=== PATIENT | male | born 1970 | race Caucasian/White ===

== ENCOUNTER 2022-06-21 14:00 | Outpatient (CLI) | payer BC, SELFPAY ==
--- OUTSIDE RECORDS SUMMARY | 2022-06-21 14:03 | XMS_ITS | Encounter Summary ---
:1970 Author Organization [facility] [place] [address] Care Team Providers Name Role Phone Darin Lozano MD Primary Care Provider Reason for Visit Reason Onset Date Comments Pre Procedure Call 05/04/2021 Encounter Details Date Type Department Care Team Description 05/04/2021 Telephone Hematology and Oncology at [facility], Pre Procedure Call [facility] [place] [address] Social History Tobacco Use Types Packs/Day Years Used Date Never Smoker Smokeless Tobacco: Never Used Alcohol Use Standard Drinks/Week Comments Yes 2 (1 standard drink = 0.6 oz pure alcoho l) Financial Resource Strain Answer Date Recorded How hard is it for you to pay for the very basics like Not h eduard at all 06/21/2022 food, housing, medical care, and heating? Food Insecurity Answer Date Recorded Within the past 12 months, you worried that your food would Never true 06/21/2022 run out before you got money to buy more. Within the past 12 months, the food you bought just didn't N ever true 06/21/2022 last and you didn't have money to get more. Transportation Needs Answer Date Recorded In the past 12 months, has lack of transportation kept you f rom No 06/21/2022 medical appointments or from getting medications? In the past 12 months, has lack of transportation kept you f rom No 06/21/2022 meetings, work, or getting things needed for daily living? Housing Stability Answer Date Recorded In the last 12 months, was there a time when you were not ab le No 06/21/2022 to pay the mortgage or rent on time? In the last 12 months, how many places have you lived? 1 06/21/2022 In the last 12 months, was there a time when you did not hav e a No 06/21/[address] or slept in a senior care (including now)? Sex Assigned at Date Recorded Not on file documented as of this encounter Miscellaneous Notes Telephone Encounter - Mayi Lemons RN - 05/09/2021 3:37 PM EDT Reason for call: PSA clinic appointment on _06/11/21 at 0800___. Scheduled for Bx at this time? Yes UroNav Meds/Allergies: NKA Anticoagulant medications: (Coumadin, Plavix, ASA, NSAIDS) No If yes instruct pt to contact PCP or prescribing physician for further instruction as to discontinuing and restarting anti-coagulant therapy for Biopsy. If unable to discontinue medication as per PCP pt to keep appointment and if biopsy warranted will be scheduled for a later date with bridging. Review OTC, herbal and vitamin supplements for potential anti-coag effect: (ginko biloba, lisa, fever few, garlic, herbal teas with supplements added, Vit C,) No If yes and pt started: pt to stop supplements for 1 week prior and 1 week after biopsy. Labs: Free PSA (must be at least 10 days prior to clinic) Most recent PSA result and date 03/06/21, 10.6 Have all labs faxed to Urology office (fax # [phone]). Patient Hx: Leaky heart valve, artifical heart valve, hx of heart attack and/or problems No Artifical Joint Replacement No Family history of prostate cancer: No Anyone in household work in healthcare? No Antibiotic use in the past 6 months? No Travel outside the [place] in the past 6 months No Other MRI done 06/04/21. Instructed to hold NSAIDs for 7 days prior to appointment. Will use Fleet enema morning of appointment. Patient Instructions/Information: Patient should eat breakfast. Patient to purchase Fleet Enema and use according to directions the morning of appointment if having a biopsy. Patient will meet with provider to discuss lab results and have a SHIVANI. Registration is at Hem[facility]Onc health sciences department chair 3K. Patient understands and is able to verbalize back to this nurse the above information. Patient agrees to the POC, knows when and how to call if need arises. Telephone Encounter - Mayi [facility]ons RN - 05/09/2021 12:08 PM EDT Left message to see if patient would like to change biopsy date from 07/09 to 06/11 at 0800. Telephone Encounter - Mayi Lemons RN - 05/04/2021 10:41 AM EDT Left message to schedule MRI and prostate biopsy with Dr. Sabillon. documented in this encounter Plan of Treatment Not on filedocumented as of this encounter Results US Guided Biopsy Prostate with Uronav Fusion (06/11/2021 9:59 AM EDT) Anatomical Region Laterality Modality Pelvis Ultrasound Specimen (Source) Anatomical Collection Method Collection Time Re ceived Time Location / / Volume Laterality 06/11/2021 9:27 AM EDT Impressions 06/11/2021 1:58 PM EDT Prostate Summary Transrectal ultrasound of the prostate was performed. No hypoechoic areas seen. Calcification s Prostate Biopsy Summary Ultrasound guidance was provided for Dr Matt Sabillon of the section of Urology who performed multiple biopsies in the [address] [place] [address] location. UroNav fusion was used for this procedu re. Thank you for letting us participate in the care of this patient. If you are a [facility] care [facility] er and have any questions regarding this report, please contact the number above. For patients who have ques tions, please contact the [facility] professio nal that requested your imaging first. ? Josh [place], Staff Terrence romero Electronically Signed Final Report ?? 01:58 pm Narrative 06/11/2021 1:58 PM EDT Male Pelvis ? (Signed Final 06/11/2021 01:58 pm) PATIENT INFO: ID #: ? [id number] ?: ??[birth year] (50 yrs)(M) Name: ? TI Griffin MICHAEL ? Visit Date: 06/11/2021 09:27 am PERFORMED BY: Performed By: ? Manjeet Ambrose RDMS Attending: ?Gio BRISCOE, Vladimir de los santos Referred By: ?JUANA SABILLON Location: ? [place] SERVICE(S) PROVIDED: UTRBXURO - Prostate Biopsy with UroNav Fusion ? [id number], [id number] - [id number] INDICATIONS: Prostate cancer, active surveillance, P SA 10.6 TECHNIQUE/SCAN QUALITY: Technique: ?Transducer #:[id number] COMPARISON: MRI Pelvis:06/04/21 Ultrasound: Prostate 03/29/19 --------- PROSTATE: --------- Size (cm) ?L: ??4.7 ? AP: ?? 2.5 ? TV: ??4.7 Vol (ml): ?28.9 Comment: ?No hypoechoic areas seen. Calcifications ADDITIONAL FINDINGS: Template biopsies performed: 6 biopsies obtained from the right. 6 biopsies obtained from the left 2 biopsies obtained from midline. Several additional biopsies obtained th rough suspicious area(s) using UroNav fusion. Procedure Note Josh [place] MD - 06/11/2021Format ting of this note might be different from the original. Male Pelvis (Signed Final 06/11/2021 01 :58 pm) PATIENT INFO: ID #: [id number] : [birth year] (50 y rs)(Rohan) Name: TI RODRIGUEZ Visit Date: 06/11/2021 09:27 am PERFORMED BY: Performed By: Manjeet Ambrose RDMS Attending: Josh [place] MD Referred By: JUANA SABILLON Location: [place] SERVICE(S) PROVIDED: UTRBXURO - Prostate Biopsy with UroNav Fusion [id number], [id number] - [id number] INDICATIONS: Prostate cancer, active surveillance, P SA 10.6 TECHNIQUE/SCAN QUALITY: Technique: Transducer #:[id number] COMPARISON: MRI Pelvis:06/04/21 Ultrasound: Prostate 03/29/19 --------- PROSTATE: --------- Size (cm) L: 4.7 AP: 2.5 TV: 4.7 Vol (ml): 28.9 Comment: No hypoechoic areas seen. Calc ifications ADDITIONAL FINDINGS: Template biopsies performed: 6 biopsies obtained from the right. 6 biopsies obtained from the left 2 biopsies obtained from midline. Several additional biopsies obtained th rough suspicious area(s) using UroNav fusion. IMPRESSION Prostate Summary Transrectal ultrasound of the prostate was performed. No hypoechoic areas seen. Calcification s Prostate Biopsy Summary Ultrasound guidance was provided for Dr Matt Sabillon of the section of Urology who performed multiple biopsies in the [address] [place] [address] location. UroNav fusion was used for this procedu re. Thank you for letting us participate in the care of this patient. If you are a [facility] er and have any questions regarding this report, please contact the number above. For patients who have ques tions, please contact the [facility] professio nal that requested your imaging first. Josh [place]r, Staff Physician Electronically Signed Final Report 06/11 01:58 pm Juana Sabillon MD [facility] PROC ORDERABLES documented in this encounter Visit Diagnoses Diagnosis Malignant neoplasm of prostate Malignant neoplasm of prostate documented in this encounter Care Teams Air Brake Rigger Relationship Specialty Start Date End Date Darin Lozano MD PCP - General Family Medicine 03/29/[address] [place] [phone] documented as of this encounter
--- OUTSIDE RECORDS SUMMARY | 2022-06-21 14:03 | XMS_ITS | Encounter Summary ---
:1970 Author Organization [facility] [place] [address] Care Team Providers Name Role Phone Darin Lozano MD Primary Care Provider Encounter Details Date Type Department Care Team Description 10/13/2020 Orders Only [facility] Cov id, Eligible [facility] none [facility] [place] [address] Social History Tobacco Use Types Packs/Day Years Used Date Never Smoker Smokeless Tobacco: Never Used Financial Resource Strain Answer Date Recorded How [...] place to sleep or slept in a custodial (including now)? Sex Assigned at Date Recorded Not on file documented as of this encounter Plan of Treatment Not on filedocumented as of this encounter Visit Diagnoses Not on filedocumented in this encounter Care Teams Sane Nurse Relationship Specialty Start Date End Date Darin Lozano MD PCP - General Family Medicine 03/29/[address] [place] [phone] documented as of this encounter
--- OUTSIDE RECORDS SUMMARY | 2022-06-21 14:03 | XMS_ITS | Encounter Summary ---
:1970 Author Organization [facility] [place] [address] Care Team Providers Name Role Phone Darin Lozano MD Primary Care Provider Encounter Details Date Type Department Care Team Description 04/19/2019 External Results Medical Records Provider, Scanning [facility] [place] [address] Social History Tobacco Use Types Packs/Day Years Used Date Never Assessed Financial Resource Strain Answer Date Recorded How [...] place to sleep or slept in a alf (including now)? Sex Assigned at Date Recorded Not on file documented as of this encounter Plan of Treatment Not on filedocumented as of this encounter Procedures Procedure Name Priority Date/Time Associated Diagnosis Comme nts SURGICAL PATHOLOGY Routine 04/19/2019 Results f or this SCAN procedure are i n the results section . documented in this encounter Results Scan Doc: Surgical Pathology (04/19/2019) Narrative This result has an attachment that is no t available. Historical Provider MD MEDIA MGR SCAN EXT ORDR/RSLT documented in this encounter Visit Diagnoses Not on filedocumented in this encounter Care Teams Umbrella Supervisor Relationship Specialty Start Date End Date Darin Lozano MD PCP - General Family Medicine 03/29/[address] [place] [phone] documented as of this encounter
--- OUTSIDE RECORDS SUMMARY | 2022-06-21 14:03 | XMS_ITS | Encounter Summary ---
:1970 Author Organization [facility] [place] [address] Care Team Providers Name Role Phone Winston Li MD Primary Care Provider Encounter Details Date Type Department Care Team Description 02/22/2019 Orders Only Urology at [facility] Ralf Sabillon MD [facility] [place] [address] UROLOGY [phone] [place] [id number] (Wo rk) Social History Tobacco Use Types Packs/Day Years [...] place to sleep or slept in a assisted (including now)? Sex Assigned at Date Recorded Not on file documented as of this encounter Plan of Treatment Not on filedocumented as of this encounter Visit Diagnoses Not on filedocumented in this encounter Care Teams Can Washer Relationship Specialty Start Date End Date Winston Li MD PCP - General 08/14/10 03/28/19 documented as of this encounter
--- OUTSIDE RECORDS SUMMARY | 2022-06-21 14:03 | XMS_ITS | Encounter Summary ---
:1970 Author Organization [facility] [place] [address] Care Team Providers Name Role Phone Darin Lozano MD Primary Care Provider Reason for Visit Consultation (Routine) - Closed Specialty Diagnoses / Procedures Referred By Contact Refer red To Contact Radiation Oncology Diagnoses Malignant neoplasm of prostate PROSTATE CANCER Sophie Roca MD [facility] Rad Onc Office Procedures TREATMENT OPTIONS [address] [place] [address] [place] [address] Phone: Fax: Referral ID Status Reason Start Date Expiration Date Visits Requ ested Visits Authorized [id number] Closed 03/09/2021 03/09/2022 1 1 Encounter Details Date Type Department Care Team Description 04/20/2021 Office Visit Radiation Oncology at Enzo Bennett M alignant neoplasm of [facility] MD prostate [address] [place] [address] RADIATION ONCOL OGY [address] [place], [place] [phone] (Wo rk) Social History Tobacco Use Types [...] place to sleep or slept in a chcf (including now)? Sex Assigned at Date Recorded Not on file documented as of this encounter Last Filed Vital Signs Vital Sign Reading Time Taken Comments Blood Pressure 135/89 04/20/2021 10:00 AM EDT Pulse 77 04/20/2021 10:00 AM EDT Temperature 37 ??C (98.6 ??F) 04/20/2021 10:00 AM EDT Respiratory Rate 16 04/20/2021 10:00 AM EDT Oxygen Saturation 100% 04/20/2021 10:00 AM EDT Inhaled Oxygen Concentration - - Weight 95.2 kg (209 lb 12.8 oz) 04/20/2021 10:00 AM EDT Height - - Body Mass Index 28.83 03/29/2019 10:05 AM EDT documented in this encounter Progress Notes Jessica Timmons RN - 04/20/2021 11:00 AM EDT RADIATION ONCOLOGY NURSING INITIAL NURSING ASSESSMENT IDENTIFICATION: Ti Mario is a 50 y.o. year-old male with prostate ca REVIEW OF SYSTEMS: Review of Systems - Oncology REVIEW OF SYSTEMS 04/20/2021 Constitutional - Ear / nose / throat / mouth None of the above Eyes None of the above Respiratory None of the above Cardiovascular None of the above Gastrointestinal None of the above Skin, hair Itching Musculoskeletal None of the above Neurological Balance difficulty, dizziness Hematologic / Lymphatic None of the above Genitourinary Dribbling slight balance issue when he goes from sitting to standing or bends over, 3-4 times a week. Not dizzy. No fainting. No falling. Right anterior thigh vibration sensation. Occasionally happens while standing. Started 2 weeks ago. No pain. Feels like phone vibrating there ( but phone not there) IN THE PAST 12 MONTHS HAVE YOU: Fallen more than one time? No Injured yourself as result of the fall? No Experienced difficulty with walking/problems with balance? Yes only slight ( see above) Do you use any assistive devices? No Any history of collagen vascular diseases:No Any Implanted Devices/Hardware: No If yes please put alert in ARIA patient summary Prior Radiotherapy: No Prior Chemotherapy: No Prior Hormone Therapy: No Other: Patient denies history of Scleroderma and Lupus LEARNING ASSESSMENT REVIEWED: Yes ADVANCED DIRECTIVE: Not discussed today. PAIN ASSESSMENT: [0] out of 10 *eD-H Adult PCS Flow Sheet if 4 or above SOCIAL ASSESSMENT: See [facility] social assessment information entered. Support Systems: lives with , Aria who runs and owns a restaurant. 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 RADIATION SPECIFIC TEACHING:Will provide the following information on day [facility] Radiation Therapy and You Site specific teaching : Other: PLAN: Per Dr Bennett Jalyn Ramírez - 04/20/2021 11:00 AM EDT Images from the original note were not included. Radiation Oncology Consult Note Enzo Bennett MD, MS [facility] [phone] PATIENT IDENTIFICATION: PATIENT NAME: Ti Mario Jr. DATE OF : 1970 REFERRING PROVIDER: Sophie Roca MD [address] [place] [id number] REASON FOR CONSULTATION : Cancer Staging Malignant neoplasm of prostate Staging form: Prostate, AJCC 8th Edition - Clinical: Stage IIA (cT1c, cN0, cM0, PSA: 10.6, Grade Group: 1) - Signed by Enzo Bennett MD on 04/20/2021 HISTORY OF PRESENT ILLNESS: Mr. 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 06/05/18 - PSA 7.8 ?? 11/23/18- Biopsy by Dr. Barrios with pathology showing adenocarcinoma, [place] 3+3=6, grade group 1, 4/12 cores positive in the right apex, left lateral base, left lateral mid, and left apex. Polaris score 2.8. ?? 03/19/19- MRI prostate showed no focal lesions. ?? 03/29/19- Biopsy by Dr. Sabillon showed [place] 3+3=6, grade group 1, 5/12 cores positive in the right lateral apex, right mid, right apex, left lateral apex, and left apex. Ti elected to continue onsurveillance with Dr. Sabillon. ?? 12/01/19- Digital rectal exam with no nodules according to Dr. Sabillon (T1c). ?? 03/08/21- Digital rectal exam with no nodules according to Dr. Roca (T1c). PSA at this time mohan to 10.63, prompting recommendation from Dr. Roca to consider treatment. PSA history 06/05/18 7.81 06/30/18 7.68 03/29/19 8.57 12/01/19 8.3 03/06/21 10.6 Mr. Mario is here to discuss radiation therapy as an option for his prostate cancer. REVIEW OF SYSTEMS: On further questioning, he reports some urinary dribbling but otherwise no frequency, nocturia, dysuria. He denies diarrhea, constipation. IPSS, SIDNEY, and Epic responses as below. IPSS Responses 04/20/2021 International Prostate Symptom Score 6 ( Mild LUTS) IPSS: ncomplete emptying Less than 1 time in 5 IPSS: Frequency Less than 1 time in 5 IPSS: Intermittency Not at all IPSS: Urgency Not at all IPSS: Weak Stream Less than 1 time in 5 IPSS: Straining Not at all IPSS: Nocturia 3 times IPSS: Quality of life Pleased SIDNEY Responses 04/20/2021 Sexual Health Inventory for Men 24 SIDNEY: Confidence, level - past 6 months High SIDNEY: Penetration - past 6 months Almost always or always SIDNEY: Penetration, maintain - past 6 months Almost always or always SIDNEY: Erection, maintain - past 6 months Not difficult SIDNEY: Sexual satisfaction - past 6 months Almost always or always EPIC-PC Responses 04/20/2021 Urinary Incontinence Symptom Score 1 Urinary Irritation/Obstructive Symptom Score 2 Bowel Symptom Score 0 Vitality/Hormonal Symptom Score 0 Overall Prostate Cancer QOL Score 3 Urinary function problem Very small problem Urinary control Occasional dribbling # of pads used per day None Urinary dripping/leakage problem No problem Pain or burning with urination No problem Weak urine stream/incomplete bladder emptying Very small problem Need to urinate frequently Very small problem Rectal pain or urgency of bowel movements No problem Increased frequency of your bowel movements No problem Overall problems with your bowel movements No problem Bloody stools No problem Ability to reach orgasm Good Quality of your erections Firm enough for intercourse Problem with sexual function or lack of it Very small problem Hot flashes or breast tenderness/enlargement No problem Feeling depressed No problem Lack of energy No problem REVIEW OF SYSTEMS 04/20/2021 Constitutional - Ear / nose / throat / mouth None of the above Eyes None of the above Respiratory None of the above Cardiovascular None of the above Gastrointestinal None of the above Skin, hair Itching Musculoskeletal None of the above Neurological Balance difficulty, dizziness Hematologic / Lymphatic None of the above Genitourinary Dribbling A comprehensive 14 point review of systems was conducted with this patient and is otherwise negativeexcept as documented above. PAST MEDICAL AND SURGICAL HISTORY: No past medical history on file. Past Surgical History: Procedure Laterality Date ??? COLONOSCOPY 2018 at [facility] had 3 polyps removed ??? US GUIDED BIOPSY PROSTATE ([place] ONLY) 03/29/2019 US Guided Transrectal Biopsy 03/29/2019 [facility] RAD ULTRASOUND CONTRAINDICATIONS TO RADIATION THERAPY: None Prior Radiation to this Site: No Active Connective Tissue Disease (Lupus or Scleroderma) No MEDICATIONS AND ALLERGIES: Medications 04/20/21 1115 Medication Sig Taking? omeprazole (PriLOSEC) 20 mg Capsule, Delayed Release(E.C.) Take 20 mg by mouth daily as needed. Yes sildenafil (VIAGRA) 100 mg Tablet Yes albuterol 90 mcg/actuation HFA Aerosol Inhaler Inject as directed. Yes No Known Allergies SOCIAL HISTORY: [place]: GINGER [place] Living Situation: With his Transit time to [facility]: 1.25 hours Employment history: Retired from law enforcement, restaurant edi architect Smoking: Never Alcohol ~2 cans of beer a week Illicits: None FAMILY HISTORY: No family history on file. PHYSICAL EXAM BP 135/89 Pulse 77 Temp 37 ??C (98.6 ??F) Resp 16 Wt 95.2 kg (209 lb 12.8 oz) SpO2 100% BMI 28.83 kg/m?? General: alert, appears younger than stated age, in no distress sitting in exam room by himself Cardiac: Regular rate and rhythm. No murmurs/rubs/gallops. Pulmonary: CTA bilaterally, no wheezing. Abdomen: soft, non-tender in all four quadrants. Ext: No LE edema bilaterally. SHIVANI: deferred TODAY'S PERFORMANCE STATUS: KPS Score ECOG Grade Definition X 90-100 0 Fully active, able to carry on all pre-disease performance without restriction 70-80 1 Restricted in physically strenuous activity but ambulatory and able to carry out work of a light or sedentary nature, e.g., light house work, office work 50-60 2 Ambulatory and capable of all selfcare but unable to carry out any work activities; up and about more than 50% of waking hours 30-40 3 Capable of only limited selfcare; confined to bed or chair more than 50% of waking hours 10-20 4 Completely disabled; cannot carry on any selfcare; totally confined to bed or chair IMAGING REVIEW: MRI prostate 03/19/19 No focal lesions shown (PIRADS 1) [employer] Images: PATHOLOGY REVIEW: Source: TRUS Prostate Biopsy Provider / Location: Dr. Barrios Date: 11/23/18 Histology / Grade Gl 6 x 4/12 cores (bilat) Source: TRUS Prostate Biopsy Provider / Location: Dr. 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 Serial SHIVANI has not shown progression. Most recent MRI and biopsy was 2 years ago. Today's discussion focused primarily on the decision to treat vs continue surveillance. He is young though doubling time is slow (6.5 years). We reviewed his disease parameters and prognosis in light of the ProtecT study which randomized ~1,500 men to surveillance, surgery, or radiation (Pati et al, [facility], 2016). At 10 years, the prostate-cancer specific mortality was low irrespective of treatment modality. There was however a small increased risk of developing metastases in the surveillance arm, ascompared to the treatment groups, although the absolute number was low. We also reviewed QOL as reported on the trial, which remains an important consideration given his age and sexual function (SIDNEY 24) - as expected - treated patients reported higher rates of sexual dysfunction, urinary incontinence, and bowel dysfunction depending on their treatment modality (Wood et al, [facility], 2017). Continued surveillance, therefore would delay potential risks of treatment at slight risk of disease progression. Given his age and PSA progression, treatment is also reasonable. We reviewed radical prostatectomy and radiation therapy, focusing today's discussion on the latter. We reviewed - moderately hypofractionated external beam radiation therapy - SBRT - LDR monotherapy radioactive seed implant We discussed that salvage options following surgery includes radiation but the inverse may not be possible, and if possible may result in significant morbidity. However, we discussed that regardless ofthe treatment choice, the need for salvage remains low. He has an appointment with Dr Sabillon 05/03 and we discussed that topics of discussion at that time may include utility of repeat mpMRI, targeted vs template biopsies, and/or genomic testing - possibly with Decipher or Oncotype. We have of late been using the former, given that it does not rely on clinical information in its prognostic model, validated for low risk disease. As it stands now, we will not make any further appointments in radiation oncology but will await outcome from his discussion with Dr. Sabillon next month. All of Mr. Mario's questions were answered to his fullest satisfaction, and we have provided him with our contact information should any further questions or concerns arise. SUMMARY OF PLAN / RECOMMENDATION: 1. Intent of therapy: Curative 2. Clinical Trial Availability: Yes, [id number] 3. We will follow up on an as needed basis Jalyn Ramírez MS4 Attending MD Attestation: I have seen the patient in person, reviewed and edited the medical student's above history and I agree with the details as written. The assessment and plan were formulated in discussion with me and I agree with them as documented. 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 His baseline PSA was higher than expected for someone his age and has increased <3 ng/dl over the past 3 years. His last restaging was 03/2019 and at that time mpMRI, biopsies and genomic testing were all unrevealing in terms of adverse pathology. We discussed continued , RT, RP today, and focused today's conversation on the risks and benefits of treatment now vs later. It seems he is leaning towards surgery sooner rather than later - however that calculus may change depending on his conversation with Dr Sabillon. We are happy to see him back shortly following that conversation, if Ti opts for treatment with radiation at any time. Otherwise I discussed my impression that restaging and continued surveillance with or without repeat genomic testing remains an excellent option to help with this complex decision making process. At least 60 minutes were spent in providing care to this patient today as reflected by the followingactivities: - review of his medical record in the chart, including interpretation of imaging, laboratory and pathologic studies referenced above - discussion of the above with the patient as part of shared medical decision making - documenting the outcome of today's visit as above documented in this encounter Plan of Treatment Not on filedocumented as of this encounter Visit Diagnoses Diagnosis Malignant neoplasm of prostate documented in this encounter Care Teams Talent Development Manager Relationship Specialty Start Date End Date Darin Lozano MD PCP - General Family Medicine 03/29/[address] [place] [phone] documented as of this encounter
--- OUTSIDE RECORDS SUMMARY | 2022-06-21 14:03 | XMS_ITS | Encounter Summary ---
:1970 Author Organization [facility] [place] [address] Care Team Providers Name Role Phone Darin Lozano MD Primary Care Provider Encounter Details Date Type Department Care Team Description 07/13/2021 Orders Only [place] [place] [facility] [place]alf Sabillon Malignant neoplasm of [facility] [place] [address] UROLOGY [phone] [place] [phone] (Wo rk) Social History Tobacco Use Types [...] place to sleep or slept in a jail (including now)? Sex Assigned at Date Recorded Not on file documented as of this encounter Progress Notes Ralf Sabillon MD - 07/13/2021 12:43 PM EDT I called to review prostate biopsy results. Called multiple times but was not able to connect. Will schedule FUV with repeat PSA in 3 months or so to discuss. documented in this encounter Plan of Treatment Not on filedocumented as of this encounter Visit Diagnoses Diagnosis Malignant neoplasm of prostate documented in this encounter Care Teams Pediatric Physical Therapy Assistant Relationship Specialty Start Date End Date Darin Lozano MD PCP - General Family Medicine 03/29/19 [address] [place] [address] documented as of this encounter
--- OUTSIDE RECORDS SUMMARY | 2022-06-21 14:03 | XMS_ITS | Encounter Summary ---
:1970 Author Organization [facility] [place] [address] Care Team Providers Name Role Phone Darin Lozano MD Primary Care Provider Encounter Details Date Type Department Care Team Description 04/06/2019 Orders Only [place] [facility] [place]alf Sabillon Malignant neoplasm of [facility] [place] [address] UROLOGY [phone] [place] [phone] (Wo rk) Social History Tobacco Use Types [...] place to sleep or slept in a nursing home (including now)? Sex Assigned at Date Recorded Not on file documented as of this encounter Progress Notes Ralf Sabillon MD - 04/06/2019 1:34 PM EDT I called with biopsy results that show stable taco 6 disease. Considering reassuring MRI and genomics I think it is reasonable to continue surveillance but I would plan repeat MRI with biopsy in 2 years unless PSA / SHIVANI triggers sooner. He is in agreement with this plan. documented in this encounter Plan of Treatment Not on filedocumented as of this encounter Results (ABNORMAL) PSA (Ultrasensitive) (12/01/2019 1:12 PM EDT) Analysis Performed At Patho logist Time Signature PSA Total 8.30 (H) 0.00 - [facility] (Ultrasensitiv 4.00 ng/mL [facility] LABORATORY Specimen Anatomical Collection Method Collection Time Receive d Time (Source) Location / / Volume Laterality Blood specimen 12/01/2019 1:12 PM 020 1:24 (specimen) EDT PM EDT Resulting Agency Comment Spec In Lab Ralf Sabillon MD CHEMISTRY ORDERABLES Performing Organization Address City/State/[place] [address] documented in this encounter Visit Diagnoses Diagnosis Malignant neoplasm of prostate documented in this encounter Care Teams Supervisor Respiratory Relationship Specialty Start Date End Date Darin Lozano MD PCP - General Family Medicine 03/29/19 [address] [place] [address] documented as of this encounter
--- OUTSIDE RECORDS SUMMARY | 2022-06-21 14:03 | XMS_ITS | Encounter Summary ---
:1970 Author Organization [facility] [place] [address] Care Team Providers Name Role Phone Darin Lozano MD Primary Care Provider Encounter Details Date Type Department Care Team Description 12/01/2019 Office Visit Urology at [facility] Ralf Sabillon Malignant neoplasm of [facility] MD [place] [address] UROLOGY [phone] [place], [place] [address] (Wo rk) Social History Tobacco Use Types [...] place to sleep or slept in a half-way (including now)? Sex Assigned at Date Recorded Not on file documented as of this encounter Last Filed Vital Signs Vital Sign Reading Time Taken Comments Blood Pressure 123/75 12/01/2019 2:50 PM EDT Pulse 88 12/01/2019 2:50 PM EDT Temperature - - Respiratory Rate 15 12/01/2019 2:50 PM EDT Oxygen Saturation 100% 12/01/2019 2:50 PM EDT Inhaled Oxygen Concentration - - Weight - - Height - - Body Mass Index - - documented in this encounter Progress Notes Ralf Sabillon MD - 12/01/2019 2:40 PM EDT Patient Name: Ti Mario Jr. Date of Service: 12/01/2019 Primary Care Provider: Darin Lozano MD Reason for Visit: Ti Mario Jr. is a 49 y.o. male here for follow-up regarding low risk prostate cancer on active surveillance. Lab values are reviewed and are as noted in the history. PSA 05/2018 7.809 06/2018 7.680 01/2019 7.048 11/2018 TRUS Bx: Left apex, grade group 1, 70% of the core Right apex, GG1, 5% Left lateral base, GG1, 12% (+perineural invasion) Left lateral mid, GG1, 25% ?? Also had a Prolaris test performed, molecular score was 2.8. This placed him at 1.8% disease specific mortality at 10 yrs with conservative management. ?? 02/2019 - mpMRI Negative. 03/2019 8.5 03/2019 - TRUS Bx ? Surgical Pathology DIAGNOSIS A - Prostatic core needle biopsy, right lateral base: ? Benign prostatic tissue. B - Prostatic core needle biopsy, right lateral mid: ? Microscopic atypical glandular focus. C - Prostatic core needle biopsy, right lateral apex: ? Adenocarcinoma, grade group 1, [place] grade 3+3, ? involving 5-10% of the biopsy core. D - Prostatic core needle biopsy, right base: ? Microscopic atypical glandular focus. E - Prostatic core needle biopsy, right mid: ? Adenocarcinoma, grade group 1, Earn[place] grade 3+3, ? involving 20% of the biopsy core. F - Prostatic core needle biopsy, right apex: ? Adenocarcinoma, grade group 1, [place] grade 3+3, ? involving 30% of the biopsy core. G - Prostatic core needle biopsy, left lateral base: ? Benign prostatic tissue. H - Prostatic core needle biopsy, left lateral mid: ? Microscopic atypical glandular focus. I - Prostatic core needle biopsy, left lateral apex: ? Adenocarcinoma, grade group 1, Earnestine grade 3+3, ? involving 20% of the biopsy core (discontinuous ? involvement). J - Prostatic core needle biopsy, left base: ? Benign prostatic tissue. K - Prostatic core needle biopsy, left mid: ? Benign prostatic tissue. L - Prostatic core needle biopsy, left apex: ? Adenocarcinoma, grade group 1, [place] grade 3+3, ? involving 50% of the biopsy core (discontinuous ? involvement). 11/2019 - 8.3 Prostate IPSS and SIDNEY(Pt Entered): last 5 values Prostate Today's Scores 03/29/2019 12/01/2019 Sexual Health Inventory for Men 24 24 International Prostate Symptom Score 8 (Moderate LUTS) 5 ( Mild LUTS) Appetite is good weight is stable. There is no bone pain. Past Medical History: Prostate cancer Family History: There is no known family history of urological disease Social History: No Smoking Medications: Reviewed in EMR Allergies: Reviewed in EMR Systems review: REVIEW OF SYSTEMS 12/01/2019 Constitutional None of the above Ear / nose / throat / mouth None of the above Eyes None of the above Respiratory None of the above Cardiovascular None of the above Gastrointestinal None of the above Skin, hair None of the above Musculoskeletal None of the above Neurological None of the above Hematologic / Lymphatic None of the above Genitourinary None of the above Physical Exam: Vital Signs are reviewed. The patient appears healthy and in no distress. Examination of the hands, head neck, eyes ears nose and throat is normal. The skin is normal. SHIVANI without nodules Lab values are reviewed in the EMR and and are as noted in the history. X-rays Have been independently reviewed and are as noted in the history. Impression: #1: Low risk prostate cancer on #2: Minimal medical co-morbidity Plan: # PSA in 6 months (will be done at [facility]), further PSA timing to be determined after repeat PSA # Repeat MRI / biopsy in 02/2021 unless triggered sooner 20 minutes spent in counseling and coordination of care Marcia Diallo RN - 12/01/2019 2:40 PM EDT PSA order faxed to [facility]. documented in this encounter Plan of Treatment Not on filedocumented as of this encounter Visit Diagnoses Diagnosis Malignant neoplasm of prostate documented in this encounter Care Teams Cake Knocker Relationship Specialty Start Date End Date Darin Lozano MD PCP - General Family Medicine 03/29/19 [address] [place] [phone] documented as of this encounter
--- OUTSIDE RECORDS SUMMARY | 2022-06-21 14:03 | XMS_ITS | Encounter Summary ---
:1970 Author Organization [facility] [place] [address] Care Team Providers Name Role Phone Darin Lozano MD Primary Care Provider Encounter Details Date Type Department Care Team Description 03/29/2019 Hospital Encounter Ultras[place] [facility] [place] Sabillon Malignant neoplasm [facility] MD [address] [place], [place] [id number] UROLOGY [phone] [place], [place] [address] Social History Tobacco Use Types Packs/Day Years [...] on file documented as of this encounter Medications at Time of Discharge Medication Sig Dispensed Refills Start Date End Date albuterol 90 Inject as directed. 0 07/13/2018 mcg/actuation HFA Aerosol Inhaler sildenafil (VIAGRA) 100 6 12/24/2018 0 06/21/2022 mg Tablet documented as of this encounter Plan of Treatment Not on filedocumented as of this encounter Procedures Procedure Name Priority Date/Time Associated Diagnosis Comme nts US GUIDED BIOPSY Routine 03/29/2019 12:32 PM Malignant neoplas m Results for this PROSTATE (RIVA EDT of prostate procedure are in ONLY) the results section. SPECIMEN TO Routine 03/29/2019 12:24 PM Results for this PATHOLOGY EDT procedure are i n the results section. SPECIMEN TO Routine 03/29/2019 12:24 PM Results for this PATHOLOGY EDT procedure are i n the results section. SPECIMEN TO Routine 03/29/2019 12:24 PM Results for this PATHOLOGY EDT procedure are i n the results section. SPECIMEN TO Routine 03/29/2019 12:24 PM Results for this PATHOLOGY EDT procedure are i n the results section. SPECIMEN TO Routine 03/29/2019 12:24 PM Results for this PATHOLOGY EDT procedure are i n the results section. SPECIMEN TO Routine 03/29/2019 12:24 PM Results for this PATHOLOGY EDT procedure are i n the results section. SPECIMEN TO Routine 03/29/2019 12:24 PM Results for this PATHOLOGY EDT procedure are i n the results section. SPECIMEN TO Routine 03/29/2019 12:24 PM Results for this PATHOLOGY EDT procedure are i n the results section. SPECIMEN TO Routine 03/29/2019 12:24 PM Results for this PATHOLOGY EDT procedure are i n the results section. SPECIMEN TO Routine 03/29/2019 12:24 PM Results for this PATHOLOGY EDT procedure are i n the results section. SPECIMEN TO Routine 03/29/2019 12:24 PM Results for this PATHOLOGY EDT procedure are i n the results section. SPECIMEN TO Routine 03/29/2019 12:24 PM Results for this PATHOLOGY EDT procedure are i n the results section. SURGICAL PATHOLOGY Routine 03/29/2019 12:15 PM Re sults for this REPORT EDT procedure are i n the results section. documented in this encounter Results US Guided Transrectal Biopsy (03/29/2019 12:32 PM EDT) Anatomical Region Laterality Modality Pelvis Ultrasound Specimen (Source) Anatomical Collection Method Collection Time Re ceived Time Location / / Volume Laterality 03/29/2019 12:26 PM EDT Impressions 03/31/2019 8:54 AM EDT ??Prostate Summary Transrectal ultrasound of the prostate was performed. Hypoechoic area seen. Prostate Biopsy Summary Ultrasound guidance was provided for Dr Matt Sabillon of the section of Urology who performed multiple biopsies in the [address] [place] [address] location. ??Prostate Summary Transrectal ultrasound of the prostate was performed. Hypoechoic area seen. Prostate Biopsy Summary Ultrasound guidance was provided for Dr Matt Sabillon of the section of Urology who performed multiple biopsies in the [address] [place] [address] location. Thank you for letting us participate in the care of this patient. For questions regarding this report, please contact t he number below. 8: 46 AM Other Pertinent Information^MRI done - ? Rachelle Cuevas, Staff Physician Electronically Signed Final Report ?? 08:53 am Narrative 03/31/2019 8:54 AM EDT Male Pelvis ? (Signed Final 03/31/2019 08:53 am) PATIENT INFO: ID #: ? [id number] ?: ??[birth year] (48 yrs) Name: ? TI S MICHAEL ? Visit Date: 03/29/2019 12:26 pm PERFORMED BY: Performed By: ? Florencio Alvarez RDMS Attending: ?Rachelle Cuevas MD. Referred By: ?JUANA SABILLON Location: ? [place] SERVICE(S) PROVIDED: ??UTRBX - Prostate Biopsy - [id number] ?[id number] INDICATIONS: ??Prostate cancer, active surveillance TECHNIQUE/SCAN QUALITY: Technique: ?Transducer #: ??[id number] COMPARISON: Ultrasound: 11/23/2018 --------- PROSTATE: --------- Size (cm) ?L: ??4.0 ? AP: ?? 3.1 ? TV: ??4.5 Vol (ml): ?29.5 Comment: ?Hypoechoic area seen. ADDITIONAL FINDINGS: 6 biopsies obtained from the right. 6 biopsies obtained from the left Procedure Note Rachelle Cuevas MD - 03/31/2019 Male Pelvis (Signed Final 03/31/2019 08 :53 am) PATIENT INFO: ID #: [id number] : [birth year] (48 y rs) Name: TI RODRIGUEZ Visit Date: 03/29/2019 12:26 pm PERFORMED BY: Performed By: Florencio Alvarez RDMS Attending: Rachelle Cuevas MD Referred By: JUANA SABILLON Location: [place] SERVICE(S) PROVIDED: UTRBX - Prostate Biopsy - [id number] INDICATIONS: Prostate cancer, active surveillance TECHNIQUE/SCAN QUALITY: Technique: Transducer #: [id number] COMPARISON: Ultrasound: 11/23/2018 --------- PROSTATE: --------- Size (cm) L: 4.0 AP: 3.1 TV: 4.5 Vol (ml): 29.5 Comment: Hypoechoic area seen. ADDITIONAL FINDINGS: 6 biopsies obtained from the right. 6 biopsies obtained from the left IMPRESSION Prostate Summary Transrectal ultrasound of the prostate was performed. Hypoechoic area seen. Prostate Biopsy Summary Ultrasound guidance was provided for Dr Matt Sabillon of the section of Urology who performed multiple biopsies in the [facility] location. Prostate Summary Transrectal ultrasound of the prostate was performed. Hypoechoic area seen. Prostate Biopsy Summary Ultrasound guidance was provided for Dr Matt Sabillon of the section of Urology who performed multiple biopsies in the clinic location. Thank you for letting us participate in the care of this patient. For questions regarding this report, please contact t he number below. 8: 46 AM Other Pertinent Information^MRI done Rachelle Cuevas, Staff Physician Electronically Signed Final Report 03/31 08:53 am Juana Sabillon MD IMG US PROC ORDERABLES Specimen to Pathology (03/29/2019 12:24 PM EDT) Specimen Anatomical Collection Method Collection Time Receive d Time (Source) Location / / Volume Laterality AP Specimen 03/29/2019 12:24 03/29/2019 PM EDT 12:24 PM EDT Narrative [facility] - 03/29/2019 12:24 PM EDT Specimen requisition ordered. ??Separate Pathology report to follow Juana Sabillon MD PATHOLOGY/CYTOLOGY ORDERABLE S Performing Organization Address City/[facility]/[place] [address] Specimen to Pathology (03/29/2019 12:24 PM EDT) Specimen Anatomical Collection Method Collection Time Receive d Time (Source) Location / / Volume Laterality AP Specimen 03/29/2019 12:24 03/29/2019 PM EDT 12:24 PM EDT Narrative [facility] - 03/29/2019 12:24 PM EDT Specimen requisition ordered. ??Separate Pathology report to follow Juana Sabillon MD PATHOLOGY/CYTOLOGY ORDERABLE S Performing Organization Address City/[facility]/[place] [address] Specimen to Pathology (03/29/2019 12:24 PM EDT) Specimen Anatomical Collection Method Collection Time Receive d Time (Source) Location / / Volume Laterality AP Specimen 03/29/2019 12:24 03/29/2019 PM EDT 12:24 PM EDT Narrative [facility] - 03/29/2019 12:24 PM EDT Specimen requisition ordered. ??Separate Pathology report to follow Juana Sabillon MD PATHOLOGY/CYTOLOGY ORDERABLE S Performing Organization Address City/[facility]/[place] [address] Specimen to Pathology (03/29/2019 12:24 PM EDT) Specimen Anatomical Collection Method Collection Time Receive d Time (Source) Location / / Volume Laterality AP Specimen 03/29/2019 12:24 03/29/2019 PM EDT 12:24 PM EDT Narrative [facility] - 03/29/2019 12:24 PM EDT Specimen requisition ordered. ??Separate Pathology report to follow Juana Sabillon MD PATHOLOGY/CYTOLOGY ORDERABLE S Performing Organization Address [facility]/[place] [address] Specimen to Pathology (03/29/2019 12:24 PM EDT) Specimen Anatomical Collection Method Collection Time Receive d Time (Source) Location / / Volume Laterality AP Specimen 03/29/2019 12:24 03/29/2019 PM EDT 12:24 PM EDT Narrative [facility] - 03/29/2019 12:24 PM EDT Specimen requisition ordered. ??Separate Pathology report to follow Juana Sabillon MD PATHOLOGY/CYTOLOGY ORDERABLE S Performing Organization Address City/State/[place] [address] Specimen to Pathology (03/29/2019 12:24 PM EDT) Specimen Anatomical Collection Method Collection Time Receive d Time (Source) Location / / Volume Laterality AP Specimen 03/29/2019 12:24 03/29/2019 PM EDT 12:24 PM EDT Narrative [facility] - 03/29/2019 12:24 PM EDT Specimen requisition ordered. ??Separate Pathology report to follow Juana Sabillon MD PATHOLOGY/CYTOLOGY ORDERABLE S Performing Organization Address City/State/[place] [address] Specimen to Pathology (03/29/2019 12:24 PM EDT) Specimen Anatomical Collection Method Collection Time Receive d Time (Source) Location / / Volume Laterality AP Specimen 03/29/2019 12:24 03/29/2019 PM EDT 12:24 PM EDT Narrative [facility] - 03/29/2019 12:24 PM EDT Specimen requisition ordered. ??Separate Pathology report to follow Juana Sabillon MD PATHOLOGY/CYTOLOGY ORDERABLE S Performing Organization Address City/State/[place] [address] Specimen to Pathology (03/29/2019 12:24 PM EDT) Specimen Anatomical Collection Method Collection Time Receive d Time (Source) Location / / Volume Laterality AP Specimen 03/29/2019 12:24 03/29/2019 PM EDT 12:24 PM EDT Narrative [facility] - 03/29/2019 12:24 PM EDT Specimen requisition ordered. ??Separate Pathology report to follow Juana Sabillon MD PATHOLOGY/CYTOLOGY ORDERABLE S Performing Organization Address City/State/[place] [address] Specimen to Pathology (03/29/2019 12:24 PM EDT) Specimen Anatomical Collection Method Collection Time Receive d Time (Source) Location / / Volume Laterality AP Specimen 03/29/2019 12:24 03/29/2019 PM EDT 12:24 PM EDT Narrative [facility] - 03/29/2019 12:24 PM EDT Specimen requisition ordered. ??Separate Pathology report to follow Juana Sabillon MD PATHOLOGY/CYTOLOGY ORDERABLE S Performing Organization Address City/State/[place] [address] Specimen to Pathology (03/29/2019 12:24 PM EDT) Specimen Anatomical Collection Method Collection Time Receive d Time (Source) Location / / Volume Laterality AP Specimen 03/29/2019 12:24 03/29/2019 PM EDT 12:24 PM EDT Narrative [facility] - 03/29/2019 12:24 PM EDT Specimen requisition ordered. ??Separate Pathology report to follow Juana Sabillon MD PATHOLOGY/CYTOLOGY ORDERABLE S Performing Organization Address City/[facility]/ZIP Code Phon e Number [address] Specimen to Pathology (03/29/2019 12:24 PM EDT) Specimen Anatomical Collection Method Collection Time Receive d Time (Source) Location / / Volume Laterality AP Specimen 03/29/2019 12:24 03/29/2019 PM EDT 12:24 PM EDT Narrative [facility] - 03/29/2019 12:24 PM EDT Specimen requisition ordered. ??Separate Pathology report to follow Juana Sabillon MD PATHOLOGY/CYTOLOGY ORDERABLE S Performing Organization Address [facility] [place] [address] Specimen to Pathology (03/29/2019 12:24 PM EDT) Specimen Anatomical Collection Method Collection Time Receive d Time (Source) Location / / Volume Laterality AP Specimen 03/29/2019 12:24 03/29/2019 PM EDT 12:24 PM EDT Narrative [facility] - 03/29/2019 12:24 PM EDT Specimen requisition ordered. ??Separate Pathology report to follow Juana Sabillon MD PATHOLOGY/CYTOLOGY ORDERABLE S Performing Organization Address City/[facility] [place] [address] Surgical Pathology Report (03/29/2019 12:15 PM EDT) Component Value Ref Test Analysis Performed At [facility] Method Time Signature Surgical [id number] ? Location: [address] [place] [address] The signing pathologist has (i) examined the relevant preparation(s) for the [facility] specimen(s) and (ii) rendered or confirmed the diagnosis(es) . HOSPITAL LABORATORY . ?Surgic al Pathology DIAGNOSIS A - Prostatic core needle biopsy, right lateral base: ?Benign prostatic tissue. B - Prostatic core needle biopsy, right lateral mid: ?Microscopic atypical glandular focus. C - Prostatic core needle biopsy, right lateral apex: ?Adenocarcinoma, grade group 1, Earn[place] grade 3+3, ?involving 5-10% of the biopsy core. D - Prostatic core needle biopsy, right base: ?Microscopic atypical glandular focus. E - Prostatic core needle biopsy, right mid: ?Adenocarcinoma, grade group 1, Earnestine grade 3+3, ?involving 20% of the biopsy core. F - Prostatic core needle biopsy, right apex: ?Adenocarcinoma, grade group 1, [place] grade 3+3, ?involving 30% of the biopsy core. G - Prostatic core needle biopsy, left lateral base: ?Benign prostatic tissue. H - Prostatic core needle biopsy, left lateral mid: ?Microscopic atypical glandular focus. I - Prostatic core needle biopsy, left lateral apex: ?Adenocarcinoma, grade group 1, Earnestine grade 3+3, ?involving 20% of the biopsy core (discontinuous ?involvement). J - Prostatic core needle biopsy, left base: ?Benign prostatic tissue. K - Prostatic core needle biopsy, left mid: ?Benign prostatic tissue. L - Prostatic core needle biopsy, left apex: ?Adenocarcinoma, grade group 1, [place] grade 3+3, ?involving 50% of the biopsy core (discontinuous ?involvement). CR-0 Electronically signed by: ??Gustabo BRISCOE, Herb Harvey Verified: ??03/31/2019 ?Pathologist Performed at: ??-[facility] Dept. [place]ology, [place], [place] DISCUSSION Scanned slides: [id number] C1-1 [id number] E1-1 [id number] F1-1 . DISCUSSION [id number] I1-1 [id number] L1-1 ADDITIONAL STUDIES Immunohistochemistry Studies: Formalin-fixed, paraffin-emb edded tissue sections are studied using the polymer system technique with appro priate positive and negative controls. ?These IHC studies provide the pathologist wit h adjunctive diagnostic information. Antibody specificity has been verified by testin g antibodies on a series of in-house tissues with known immunohistochemical perform ance characteristics. The clinical interpretation of any antibody positive stain ing or its absence is evaluated within the context of clinical presentation, morp hology, ??histopathological criteria and other diagnostic tests. Block ? Antibody ?Result (Positive /Negative) C-1 ?[id number] ?Negative C-1 ?P63 ?Negative C-1 ?P504S ?Positive I-1 ?[id number] ?Negative I-1 ?P63 ?Negative I-1 ?P504S ?Positive L-1 ?[id number] ?Negative L-1 ?P63 ?Negative L-1 ?P504S ?Positive CLINICAL INFORMATION Specimen Submitted: A - Right Lateral Base B - Right Lateral Mid C - Right Lateral Harleigh D - Right Base E - Right Mid F - Right Harleigh G - Left Lateral Base H - Left Lateral Mid I - Left Lateral Harleigh J - Left Base K - Left Mid L - Left Harleigh Clinical History and Diagnosis: Elevated PSA SPECIMEN PROCESSING A - Labeled/Fixative: A, right lateral base, formalin. Quantity/Size: Single, 1.7 x 0.1 cm. Tissue Description: Savage-white needle core biopsy. Sections/Processing: Entirely submitted in 1 cassette labeled A1. B - Labeled/Fixative: B, right lateral mid, formalin. Quantity/Size: Single, 1.9 x 0.1 cm. Tissue Description: Savage-white needle core biopsy. Sections/Processing: Entirely submitted in 1 cassette labeled B1. C - Labeled/Fixative: C, right lateral apex, formalin. Quantity/Size: Single, 1.2 x 0.1 cm. Tissue Description: Savage-white needle core biopsy. Sections/Processing: Entirely submitted in 1 cassette labeled C1. . SPECIMEN PROCESSING D - Labeled/Fixative: D, right base, formalin. Quantity/Size: Single, 1.1 x 0.1 cm. Tissue Description: Savage-white needle core biopsy. Sections/Processing: Entirely submitted in 1 cassette labeled D1. E - Labeled/Fixative: E, right mid, formalin. Quantity/Size: Single, 1.7 x 0.1 cm. Tissue Description: Savage-white needle core biopsy. Sections/Processing: Entirely submitted in 1 cassette labeled E1. F - Labeled/Fixative: F, right apex, formalin. Quantity/Size: Single, 1.3 x 0.1 cm. Tissue Description: Savage-white, focally hemorrhagic needle co re biopsy. Sections/Processing: Entirely submitted in 1 cassette labeled F1. G - Labeled/Fixative: G, left lateral base, formalin. Quantity/Size: Single, 1.8 x 0.1 cm. Tissue Description: Savage-white needle core biopsy. Sections/Processing: Entirely submitted in 1 cassette labeled G1. H - Labeled/Fixative: H, left lateral mid, formalin. Quantity/Size: Single, 1.3 x 0.1 cm. Tissue Description: Savage-white needle core biopsy. Sections/Processing: Entirely submitted in 1 cassette labeled H1. I - Labeled/Fixative: Left lateral apex, formalin. Quantity/Size: Single, 1.7 x 0.1 cm. Tissue Description: Savage-white needle core biopsy. Sections/Processing: Entirely submitted in 1 cassette labeled I1. J - Labeled/Fixative: J, left base, formalin. Quantity/Size: Single, 1.9 x 0.1 cm. Tissue Description: Savage-white needle core biopsy. Sections/Processing: Entirely submitted in 1 cassette labeled J1. K - Labeled/Fixative: K, left mid, formalin. Quantity/Size: Single, 1.1 x 0.1 cm. Tissue Description: Savage-white needle core biopsy. Sections/Processing: Entirely submitted in 1 cassette labeled K1. L - Labeled/Fixative: L, left apex, formalin. Quantity/Size: Single, 1.4 x 0.1 cm. Tissue Description: Savage-white needle core biopsy. Sections/Processing: Entirely submitted in 1 cassette labeled L1. ??pps Specimen (Source) Anatomical Collection Method Collection Time Re ceived Time Location / / Volume Laterality 03/29/2019 12:15 PM EDT Juana Sabillon MD PATHOLOGY/CYTOLOGY ORDERABLE S Performing Organization Address City/State/[place] [address] documented in this encounter Visit Diagnoses Diagnosis Malignant neoplasm of prostate documented in this encounter Care Teams Incoming Freight Clerk Relationship Specialty Start Date End Date Darin Lozano MD PCP - General Family Medicine 03/29/[address] [place] [address] [phone] documented as of this encounter
--- OUTSIDE RECORDS SUMMARY | 2022-06-21 14:03 | XMS_ITS | Encounter Summary ---
:1970 Author Organization [facility] [place] [address] Care Team Providers Name Role Phone Winston Li MD Primary Care Provider Encounter Details Date Type Department Care Team Description 11/24/2018 External Results Medical Records Provider, Scanning [facility] [place] [address] Social History Tobacco Use Types Packs/Day [...] place to sleep or slept in a prison (including now)? Sex Assigned at Date Recorded Not on file documented as of this encounter Plan of Treatment Not on filedocumented as of this encounter Procedures Procedure Name Priority Date/Time Associated Diagnosis Comme nts SURGICAL PATHOLOGY Routine 11/24/2018 Results f or this SCAN procedure are i n the results section . documented in this encounter Results Scan Doc: Surgical Pathology (11/24/2018) Narrative This result has an attachment that is no t available. Historical Provider MD MEDIA MGR SCAN EXT ORDR/RSLT documented in this encounter Visit Diagnoses Not on filedocumented in this encounter Care Teams Play Back Operator Relationship Specialty Start Date End Date Winston Li MD PCP - General 08/14/10 03/28/19 documented as of this encounter
--- OUTSIDE RECORDS SUMMARY | 2022-06-21 14:03 | XMS_ITS | Encounter Summary ---
:1970 Author Organization [facility] [address] Care Team Providers Name Role Phone Darin Lozano MD Primary Care Provider Encounter Details Date Type Department Care Team Description 06/11/2021 Procedure visit Hematology and Ralf Sabillon neoplasm Oncology at [facility] MD Rohan of prostate [facility] [address] [place] [address] [place] [address] [phone] Social History Tobacco Use Types Packs/Day Years [...] place to sleep or slept in a halfway (including now)? Sex Assigned at Date Recorded Not on file documented as of this encounter Last Filed Vital Signs Vital Sign Reading Time Taken Comments Blood Pressure 136/94 06/11/2021 8:23 AM EDT Pulse 84 06/11/2021 8:23 AM EDT Temperature 36.5 ??C (97.7 ??F) 06/11/2021 8:23 AM EDT Respiratory Rate - - Oxygen Saturation 99% 06/11/2021 8:23 AM EDT Inhaled Oxygen Concentration - - Weight 99.9 kg (220 lb 3.2 oz) 06/11/2021 8:23 AM EDT Height 184 cm (6' 0.44) 06/11/2021 8:23 AM EDT Body Mass Index 29.5 06/11/2021 8:23 AM EDT documented in this encounter Patient Instructions Patient InstructionsDaMayi ross RN - 06/11/2021 8:00 AM EDT PROSTATE BIOPSY DISCHARGE INFORMATION You will get a call next week with your biopsy pathology. Your pathology result may be released to your [facility] account before we have had a chance to contact you. You should feel free to check your [facility] if you would like to see if your pathology has been release. However, by doing so, you may receive your prostate biopsy results PRIOR to us discussing them with you. If you are not comfortable with receiving your pathology prior to our discussion, please deferfrom looking at your biopsy results until we can contact you. You should call your doctor if you experience any of the following: ?? You see blood in your urine, bowel movements, or semen outside of the timeframe listed below. ?? You have a temperature greater than 101.5 degrees. ?? You start to pass large clots of blood in your urine or it turns the color of tomato juice. ?? You are having increasing pain. Your doctor may be reached at weekdays from 8 AM to 5 PM. If you should develop any of these symptoms after these hours, please call the hospital engineering operator at and ask to have the Urology Resident paged or report to the Emergency Department. What do I need to watch out for after the biopsy? ?? You will almost certainly have some blood in your urine. This will generally be gone within 48 hours. However, it may last on and off for up to two weeks. ?? You will almost certainly have some blood in your bowels. This will generally be gone within 48 hours. However, it may last on and off for up to two weeks. ?? You will almost certainly have some blood in your semen or sperm. This may last on and off for upto six weeks. ?? If you have been instructed to take an antibiotic in addition to the antibiotic given to you on the clinic day, please finish the remainder of any prescription ordered. Are there any restrictions after the prostate biopsy? ?? You should take it easy after the biopsy until the blood clears in your urine and stool. Drink extra fluids. We suggest no heavy lifting, straining, or sports until after you stop seeing blood in the urine or stool. You should not have sexual activity for 48 hours after the biopsy. ?? As long as you feel okay, you should be able to drive yourself home from the biopsy. ?? We recommend that you bring someone with you but this is not absolutely necessary. ?? You may resume aspirin and other medications containing aspirin or NSAIDS (Motrin, Advil, naprosyn, etc.) one week after your biopsy. ?? If you are on a blood thinner, such as Coumadin, heparin, or fragmin, please contact your PrimaryCare Provider after the procedure to see when they wish you to resume medications. It is important you do this because some medications will require a blood test as well. When will I get the results of the biopsy? The biopsy needs to be processed and examined by a pathologist. In general, this takes about a week.Your doctor will then either see you in the office or call you on the telephone to give you the results. If you have not heard a result within 10 days of your biopsy, please call your doctor. What happens if I am found to have prostate cancer? If you are found to have prostate cancer, your doctor will discuss what this means for you. Prostatecancer is very treatable and, in most cases, there are several good treatment options. You will be given or sent a package of information about the treatment of prostate cancer. An appointment will be made for a follow-up visit one to two weeks after the biopsy result is given to you in order to discuss all the issues in more detail and arrange a treatment plan. What happens if the biopsy does not show prostate cancer? Your doctor will discuss the results of the biopsy with you. Your doctor will give you a recommendation regarding any necessary follow up. documented in this encounter Progress Notes Mayi Lemons RN - 06/11/2021 8:00 AM EDT Prostate IPSS and SIDNEY(Pt Entered): Today's answers and scores Prostate Scores and Responses 06/11/2021 Confidence, level - past 6 months Moderate Penetration - past 6 months Most times (much more than half the time) Penetration, maintain - past 6 months Almost always or always Erection, maintain - past 6 months Not difficult Sexual satisfaction - past 6 months Almost always or always Sexual Health in Men 22 Incomplete emptying Less than 1 time in 5 Frequency Less than half the time Intermittency Less than 1 time in 5 Urgency Less than half the time Weak Stream Less than 1 time in 5 Straining Less than 1 time in 5 Nocturia 2 times Quality of life Mostly satisfied Total IPSS Score 10 (MODERATE LUTS) Ralf Sabillon MD - 06/11/2021 8:00 AM EDT Patient Name: Ti Mario Jr. Date of Service: 06/11/2021 Primary Care Provider: Darin Lozano MD Reason for Visit: Ti Mario Jr. is a 50 y.o. male here for follow-up regarding low [...] group 1, Earnestine grade 3+3, ? involving 5-10% of the biopsy core. D - Prostatic core needle biopsy, right base: ? Microscopic atypical glandular focus. E - Prostatic core needle biopsy, right mid: ? Adenocarcinoma, grade group 1, Earnestine grade 3+3, ? involving 20% of the biopsy core. F - Prostatic core needle biopsy, right apex: ? Adenocarcinoma, grade group 1, Bowie grade 3+3, ? involving 30% of the biopsy core. G - Prostatic core needle biopsy, left lateral base: ? Benign prostatic tissue. H - Prostatic core needle biopsy, left lateral mid: ? Microscopic atypical glandular focus. I - Prostatic core needle biopsy, left lateral apex: ? Adenocarcinoma, grade group 1, Bowie grade 3+3, ? involving 20% of the biopsy core (discontinuous ? involvement). J - Prostatic core needle biopsy, left base: ? Benign prostatic tissue. K - Prostatic core needle biopsy, left mid: ? Benign prostatic tissue. L - Prostatic core needle biopsy, left apex: ? Adenocarcinoma, grade group 1, Bowie grade 3+3, ? involving 50% of the biopsy core (discontinuous ? involvement). 11/2020 - 8.3 02/2021 - 1 - mpMRI, unable to call PIRAD based on artifact, but midline lesion segmented into URONAV Past Medical History: Prostate cancer Family History: There is no known family history of urological disease Social History: No Smoking Medications: Reviewed in EMR Allergies: Reviewed in EMR Physical Exam: Not done, telehealth Lab values are reviewed in the EMR and and are as noted in the history. X-rays Have been independently reviewed and are as noted in the history. Impression: #1: Low risk prostate cancer on #2: Minimal medical co-morbidity Plan: # Prostate biopsy I informed him that given his information reviewed today, I would recommend that he undergo biopsiesof the prostate. We discussed alternatives and the risks and benefits of prostate biopsy (including risks of blood in urine, stool, and semen, infection and rarely hospital admission.) Pt was eager to proceed with biopsy and will have this done in clinic today. 20 minutes spent in counseling and coordination of care Ralf Sabillon MD - 06/11/2021 8:00 AM EDT Procedure Note Procedure: Transrectal ultrasound and prostate biopsy with URONAV fusion Surgeon: Ralf Sabillon Preoperative Diagnosis: Low risk prostate cancer on Post Operative Diagnosis: Successful Biopsy Complications: None Procedure: A time out procedure was performed. It was confirmed the patient had a urinanalysis that did not show evidence of a urinary infection prior to the biopsy. It was confirmed that the patient took Levaquin 500mg po ~ 1 hour ago SHIVANI revealed a small gland with no nodules The TRUS probe was inserted into the rectum and the prostate imaged in the sagittal and transverse dimensions. Prostate volume was 29 cc. The prostate was homogeneous. Prostate calcifications were observed at the junction of the peripheral and transition zones. Hypochoic areas: none obvious. There was significant calcification in the anterior midline. Rectum, periprostatic structures, visualized areas of the bladder, vas deferens and seminal vesiclesall appeared normal Prostatic anaesthesia was achieved in the standard fashion. A series of prostatic biopsies were obtained from the lateral apex, mid,and base as well as mid sagittal apex, mid and base. Biopsies were obtained from both the right and left side of the prostate. Additional biopsies: MR Lesion #1 x 2 A total of 14 biopsies were obtained. The patient tolerated the procedure without difficulty. I will contact him in about a weeks time with the results. He understands that if he does not hear from me or has any problems to contact my office. Ralf Sabillon documented in this encounter Plan of Treatment Not on filedocumented as of this encounter Visit Diagnoses Diagnosis Malignant neoplasm of prostate documented in this encounter Administered Medications Inactive Administered Medications - up to 3 most recent administrations Medication Order MAR Action Action Date Dose Rate Site levoFLOXacin (LEVAQUIN) tablet 500 Given 06/11/2021 8:25 AM EDT 500 mg mg 500 mg, Oral, ONCE, 1 dose, On 06/11/21 at 0845, Routine documented in this encounter Care Teams Twisting Department End Finder Relationship Specialty Start Date End Date Darin Lozano MD PCP - General Family Medicine 03/29/[address] [place] [id number] documented as of this encounter
--- OUTSIDE RECORDS SUMMARY | 2022-06-21 14:03 | XMS_ITS | Encounter Summary ---
:1970 Author Organization [facility] [place] [address] Care Team Providers Name Role Phone Darin Lozano MD Primary Care Provider Reason for Visit Reason Onset Date Comments Pre Procedure Call 03/08/2019 Encounter Details Date Type Department Care Team Description 03/08/2019 Telephone Hematology and Oncology at [facility], Pre Procedure Call [facility] [place] [address] Social History Tobacco Use Types Packs/Day [...] Telephone Encounter - Mayi Lemons RN - 03/08/2019 3:22 PM EDT Reason for call: PSA clinic appointment on __03/29/19 at 1000__. Scheduled for Bx at this time? Yes Meds/Allergies: NKA Anticoagulant medications: (Coumadin, Plavix, ASA, [...] clinic) Most recent PSA result and date 04/12/19, 8.571 Have all labs faxed to Urology office (fax # [phone]). Patient Hx: Leaky heart valve, artifical heart valve, hx of heart attack and/or problems No Artifical Joint Replacement No Family history of prostate cancer: No Anyone in household work in healthcare? No Antibiotic use in the past 6 months? Yes Travel outside the [place] in the past 6 months No Other MRI done 03/19/19. Instructed to hold NSAIDs for 7 days prior to appointment. Will use Fleet enema morning of appointment. Lab order faxed to [facility] [phone] (P [phone]). Patient Instructions/Information: Patient does not need to be NPO for biopsy. Patient to purchase Fleet Enema and use according to directions the morning of appointment if pt agreeable to have biopsy if offered at this appointment. If patient chooses to reschedule biopsy for a later date then no enema needed. Patient will meet with provider to discuss lab results and have a SHIVANI to determine need for biopsy. Registration is at Hem/Onc administrative receptionist on 3rd floor. Patient understands and is able to verbalize back to this nurse the above information. Patient agrees to the POC, knows when and how to call if need arises. documented in this encounter Plan of Treatment Not on filedocumented as of this encounter Results US Guided Transrectal Biopsy [...] Urology who performed multiple biopsies in the [address] [place] [address] location. ??Prostate Summary Transrectal ultrasound of the prostate was performed. Hypoechoic area seen. Prostate Biopsy Summary Ultrasound guidance was provided for Dr Matt Sabillon of the section of Urology who performed multiple biopsies in the [address] [place] [address] location. Thank you for letting us participate in the care of this patient. For questions regarding this report, please contact t he number below. 8: 46 AM Other Pertinent Information^MRI done - ? Rachelle Cuevas, Staff Physician Electronically Signed Final Report ?? 08:53 am Narrative 03/31/2019 8:54 AM EDT Male Pelvis ? (Signed Final 03/31/2019 08:53 am) PATIENT INFO: ID #: ? [id number] ?: [birth year] (48 yrs) Name: ? TI RODRIGUEZ ? Visit Date: 03/29/2019 12:26 pm PERFORMED BY: Performed By: ? Florencio Alvarez RDMS Attending: ?Rachelle Cuevas MD Referred By: ?JUANA SABILLON Location: ? [facility] SERVICE(S) PROVIDED: ??UTRBX - Prostate Biopsy - [id number] ?[id number], [id number] INDICATIONS: ??Prostate cancer, active surveillance TECHNIQUE/SCAN QUALITY: [...] 08 :53 am) PATIENT INFO: ID #: [id number] : [birth year] (48 y rs) Name: TI RODRIGUEZ Visit Date: 03/29/2019 12:26 pm PERFORMED BY: Performed By: Florencio Alvarez RDMS Attending: Rachelle Cuevas MD Referred By: JUANA SABILLON Location: [facility] SERVICE(S) PROVIDED: UTRBX - Prostate Biopsy - [id number] INDICATIONS: Prostate cancer, active surveillance TECHNIQUE/SCAN QUALITY: [...] multiple biopsies in the [facility] location. Thank you for letting us participate in the care of this patient. For questions regarding this report, please contact t he number below. 8: 46 AM Other Pertinent Information^MRI done Rachelle Cuevas, Staff Physician Electronically Signed Final Report 03/31 08:53 am Juana Sabillon MD IM US PROC ORDERABLES documented in this encounter Visit Diagnoses Diagnosis Malignant neoplasm of prostate Malignant neoplasm of prostate documented in this encounter Care Teams County Supervisor Relationship Specialty Start Date End Date Darin Lozano MD PCP - General Family Medicine 03/29/19 [address] [place] [address] documented as of this encounter
--- OUTSIDE RECORDS SUMMARY | 2022-06-21 14:03 | XMS_ITS | Encounter Summary ---
:1970 Author Organization [facility] [place] [address] Care Team Providers Name Role Phone Darin Lozano MD Primary Care Provider Encounter Details Date Type Department Care Team Description 06/11/2021 Hospital Encounter [place] [facility] Sabillon Malignant neoplasm [facility] MD [address] [place], [place] C[place] [id number] UROLOGY [phone] [place] [id number] Social History Tobacco Use Types Packs/Day Years [...] place to sleep or slept in a snf (including now)? Sex Assigned at Date Recorded Not on file documented as of this encounter Medications at Time of Discharge Medication Sig Dispensed Refills Start Date End Date omeprazole (PriLOSEC) 20 Take 20 mg by mouth 0 mg Capsule, Delayed daily as needed. Release(E.C.) albuterol 90 Inject as directed. 0 07/13/2018 mcg/actuation HFA Aerosol Inhaler sildenafil (VIAGRA) 100 6 12/24/2018 0 06/21/2022 mg Tablet documented as of this encounter Plan of Treatment Not on filedocumented as of this encounter Procedures Procedure Name Priority Date/Time Associated Diagnosis Comme nts US GUIDED BIOPSY Routine 06/11/2021 9:59 AM Malignant neoplasm Results for this PROSTATE WITH EDT of prostate procedure are in URON[facility]USION the results section. SURGICAL PATHOLOGY Routine 06/11/2021 9:53 AM Res ults for this REPORT EDT procedure are i n the results section. SPECIMEN TO Routine 06/11/2021 9:53 AM Results f or this PATHOLOGY EDT procedure are i n the results section. SPECIMEN TO Routine 06/11/2021 9:53 AM Results f or this PATHOLOGY EDT procedure are i n the results section. SPECIMEN TO Routine 06/11/2021 9:53 AM Results f or this PATHOLOGY EDT procedure are i n the results section. SPECIMEN TO Routine 06/11/2021 9:53 AM Results f or this PATHOLOGY EDT procedure are i n the results section. SPECIMEN TO Routine 06/11/2021 9:53 AM Results f or this PATHOLOGY EDT procedure are i n the results section. SPECIMEN TO Routine 06/11/2021 9:53 AM Results f or this PATHOLOGY EDT procedure are i n the results section. SPECIMEN TO Routine 06/11/2021 9:53 AM Results f or this PATHOLOGY EDT procedure are i n the results section. SPECIMEN TO Routine 06/11/2021 9:53 AM Results f or this PATHOLOGY EDT procedure are i n the results section. SPECIMEN TO Routine 06/11/2021 9:53 AM Results f or this PATHOLOGY EDT procedure are i n the results section. SPECIMEN TO Routine 06/11/2021 9:53 AM Results f or this PATHOLOGY EDT procedure are i n the results section. SPECIMEN TO Routine 06/11/2021 9:53 AM Results f or this PATHOLOGY EDT procedure are i n the results section. SPECIMEN TO Routine 06/11/2021 9:53 AM Results f or this PATHOLOGY EDT procedure are i n the results section. SPECIMEN TO Routine 06/11/2021 9:53 AM Results f or this PATHOLOGY EDT procedure are i n the results section. documented in this encounter Results US Guided Biopsy Prostate [...] performed multiple biopsies in the clinic location. UroNav fusion was used for this procedu re. Thank you for letting us participate in the care of this patient. If you are a [facility] er and have any questions regarding this report, please contact the number above. For patients who have ques tions, please contact the [facility] professio nal that requested your imaging first. ? Josh Powers, Staff Terrence romero Electronically Signed Final Report ?? 01:58 pm Narrative 06/11/2021 1:58 PM EDT Male Pelvis ? (Signed Final 06/11/2021 01:58 pm) PATIENT INFO: ID #: ? [id number] ?: ??[birth year] (50 yrs)(M) Name: ? TI Griffin MICHAEL ? Visit Date: 06/11/2021 09:27 am PERFORMED BY: Performed By: ? Manjeet Ambrose RDMS Attending: ?Vladimir Powers MD Referred By: ?JUANA SABILLON Location: ? [place] SERVICE(S) PROVIDED: UTRBXURO - Prostate Biopsy with UroNav Fusion ? [id number] - [id number] INDICATIONS: Prostate cancer, active surveillance, P SA [...] 01 :58 pm) PATIENT INFO: ID #: [id number] : [birth year] (50 y rs)(M) Name: TI RODRIGUEZ Visit Date: 06/11/2021 09:27 am PERFORMED BY: Performed By: Manjeet Ambrose RDMS Attending: Josh Powers MD Referred By: JUANA SABILLON Location: [place] SERVICE(S) PROVIDED: UTRBXURO - Prostate Biopsy with UroNav Fusion [id number] - [id number] INDICATIONS: Prostate cancer, active surveillance, P SA [...] Urology who performed multiple biopsies in the [address] [place] [address] location. UroNav fusion was used for this procedu re. Thank you for letting us participate in the care of this patient. If you are a [facility] er and have any questions regarding this report, please contact the number above. For patients who have ques tions, please contact the [facility] professio nal that requested your imaging first. Josh Powers, Staff Physician Electronically Signed Final Report 06/11 01:58 pm Juana Sabillon MD [facility] [place] Surgical Pathology Report (06/11/2021 9:53 AM EDT) Component Value Ref Test Analysis Performed At [facility] Method Time Signature Surgical [id number] ? Location: [address] [place] [address] The signing pathologist has (i) examined the relevant preparation(s) for the [facility] specimen(s) and (ii) rendered or confirmed the diagnosis(es) . HOSPITAL LAB[facility]ATORY . ?Surgic al Pathology DIAGNOSIS A - Prostate, Right lateral base, biopsy: ??- Benign prostate tissue. B - Prostate, Right lateral mid, biopsy: ??- Prostate adenocarcinoma, Grade Group 1, [place] 3 +3, occupying 20% of a single core. C - Prostate, Right lateral apex, biopsy: ??- A small focus of atypical glands. D - Prostate, Right base, biopsy: ??- Benign prostate tissue. E - Prostate, Right mid, biopsy: ??- Benign prostate tissue. F - Prostate, Right apex, biopsy: ??- Prostate adenocarcinoma, Grade Group 1, [place] 3 +3, occupying 30% of a single core. G - Prostate, Left lateral base, biopsy: ??- Prostate adenocarcinoma, Grade Group 1, [place] 3 +3, occupying 10% of a single core. H - Prostate, Left lateral mid, biopsy: ??- A small focus of atypical glands. I - Prostate, Left lateral apex, biopsy: ??- Prostate adenocarcinoma, Grade Group 1, [place] 3 +3, occupying 10% of a single core. J - Prostate, Left base, biopsy: ??- Benign prostate tissue. K - Prostate, Left mid, biopsy: ??- A small focus of atypical glands, favor [place] score 3 tumor glands. L - Prostate, Left apex, biopsy: ??- Prostate adenocarcinoma, Grade Grou p 1, [place] 3+3, ?discontinuously occupying ~75% of a single core. M - Prostate, MRI LESION#1, biopsy ??- Prostate adenocarcinoma , Grade Group 1, [place] 3+3, occupying 5% of ?one of two cores. ?Small focus of atypical glands in the second core, fav or adenocarcinoma. Electronically signed by: ?Etelvina Martinez MD Verified: ??06/16/2021 0:40 ?? Pathologist Performed at: ??-[facility] Dept. of [place]ology, [place], [place] ADDITIONAL STUDIES Immunohistochemistry Studies: . ADDITIONAL STUDIES Formalin-fixed, paraffin-emb edded tissue sections are studied using the polymer technique with appropriate positive and negative controls. ?These IHC studies provide the pathologist wit h adjunctive diagnostic information. Antibody specificity has been verified by testin g antibodies on a series of in-house tissues with known immunohistochemical perform ance characteristics. The clinical interpretation of any antibody positive stain ing or its absence is evaluated within the context of clinical presentation, morp hology, histopathological criteria and other diagnostic tests. Block ? Antibody ?Result (Positive /Negative) B1,F1 ?p63,HMWCK,p504S ?tu mor glands positive for p503S,negative ? for p63 and HMWCK Whole slide scan: [id number] B1-1,3 [id number] F1-1,3 [id number] G1-1 [id number] L1-1 [id number] M1-1 SPECIMEN(S) SUBMITTED A - Prostate, Right lateral base, biopsy (1) B - Prostate, Right lateral mid, biopsy (1) C - Prostate, Right lateral apex, biopsy (1) D - Prostate, Right base, biopsy (1) E - Prostate, Right mid, biopsy (1) F - Prostate, Right apex, biopsy (1) G - Prostate, Left lateral base, biopsy (1) H - Prostate, Left lateral mid, biopsy (1) I - Prostate, Left lateral apex, biopsy (1) J - Prostate, Left base, biopsy (1) K - Prostate, Left mid, biopsy (1) L - Prostate, Left apex, biopsy (1) M - Prostate, MRI LESION#1, biopsy (2) CLINICAL INFORMATION Elevated PSA SPECIMEN PROCESSING A - Labeled/Fixative: Prostate right lateral base, formalin. Quantity/Size: Single, 1.5 x 0.1 cm Tissue Description: Ventura needle core biopsy. Sections/Processing: Entirely submitted in 1 cassette labeled A1. B - Labeled/Fixative: Prostate right lateral mid, formalin. Quantity/Size: Single, 1.9 x 0.1 cm Tissue Description: Ventura needle core biopsy. Sections/Processing: Entirely submitted in 1 cassette labeled B1. . SPECIMEN PROCESSING C - Labeled/Fixative: Prostate right lateral apex, formalin. Quantity/Size: Single, 1.7 x 0.1 cm Tissue Description: Ventura needle core biopsy. Sections/Processing: Entirely submitted in 1 cassette labeled C1. D - Labeled/Fixative: Prostate right base, formalin. Quantity/Size: Single, 1.6 x 0.1 cm Tissue Description: Yellow-ventura needle core biopsy. Sections/Processing: Entirely submitted in 1 cassette labeled D1. E - Labeled/Fixative: Prostate right mid, formalin. Quantity/Size: Single, 1.5 x 0.1 cm Tissue Description: Ventura-pink needle core biopsy. Sections/Processing: Entirely submitted in 1 cassette labeled E1. F - Labeled/Fixative: Prostate right apex, formalin. Quantity/Size: Single, 1.9 x 0.1 cm Tissue Description: Yellow-ventura needle core biopsy. Sections/Processing: Entirely submitted in 1 cassette labeled F1. G - Labeled/Fixative: Prostate left lateral base, formalin. Quantity/Size: Single, 1.6 x 0.1 cm Tissue Description: Ventura-pink needle core biopsy. Sections/Processing: Entirely submitted in 1 cassette labeled G1. H - Labeled/Fixative: Prostate left lateral mid, formalin. Quantity/Size: Single, 1.3 x 0.1 cm Tissue Description: Ventura needle core biopsy. Sections/Processing: Entirely submitted in 1 cassette labeled H1. I - Labeled/Fixative: Prostate left lateral apex, formalin. Quantity/Size: Single, 1.3 x 0.1 cm Tissue Description: Ventura needle core biopsy. Sections/Processing: Entirely submitted in 1 cassette labeled I1. J - Labeled/Fixative: Prostate left base, formalin. Quantity/Size: Single, 1.1 x 0.1 cm Tissue Description: Ventura needle core biopsy. Sections/Processing: Entirely submitted in 1 cassette labeled J1. K - Labeled/Fixative: Prostate left mid, formalin. Quantity/Size: Single, 1.9 x 0.1 cm Tissue Description: Ventura needle core biopsy. Sections/Processing: Entirely submitted in 1 cassette labeled K1. L - Labeled/Fixative: Prostate left apex, formalin. Quantity/Size: Single, 1.8 x 0.1 cm Tissue Description: Ventura-pink needle core biopsy. Sections/Processing: Entirely submitted in 1 cassette labeled L1. M - Labeled/Fixative: MRI lesion #1, formalin. Quantity/Size: Two, 1.8 x 0.1 cm and 2.0 x 0.1 cm Tissue Description: Ventura needle core biopsies. . SPECIMEN PROCESSING Sections/Processing: Entirely submitted in 1 cassette labeled M1. ??sns Specimen (Source) Anatomical Collection Method Collection Time Re ceived Time Location / / Volume Laterality 06/11/2021 9:53 AM EDT Juana Sabillon MD PATHOLOGY/CYTOLOGY ORDERABLE S Performing Organization Address City/State/ZIP [place] [address] Specimen to Pathology (06/11/2021 9:53 AM EDT) Specimen Anatomical Collection Method Collection Time Receive d Time (Source) Location / / Volume Laterality AP Specimen 06/11/2021 9:53 AM 1 9:53 EDT AM EDT Narrative [facility] - 06/11/2021 9:53 AM EDT Specimen requisition ordered. ??Separate Pathology report to follow Juana Sabillon MD PATHOLOGY/CYTOLOGY ORDERABLE S Performing Organization Address City/[facility]/[place]IP [place] [address] Specimen to Pathology (06/11/2021 9:53 AM EDT) Specimen Anatomical Collection Method Collection Time Receive d Time (Source) Location / / Volume Laterality AP Specimen 06/11/2021 9:53 AM 1 9:53 EDT AM EDT Narrative [facility] - 06/11/2021 9:53 AM EDT Specimen requisition ordered. ??Separate Pathology report to follow Juana Sabillon MD PATHOLOGY/CYTOLOGY ORDERABLE S Performing Organization Address City/[facility]/[place] [address] Specimen to Pathology (06/11/2021 9:53 AM EDT) Specimen Anatomical Collection Method Collection Time Receive d Time (Source) Location / / Volume Laterality AP Specimen 06/11/2021 9:53 AM 1 9:53 EDT AM EDT Narrative [facility] - 06/11/2021 9:53 AM EDT Specimen requisition ordered. ??Separate Pathology report to follow Juana Sabillon MD PATHOLOGY/CYTOLOGY ORDERABLE S Performing Organization Address City/[facility]/[place] [address] Specimen to Pathology (06/11/2021 9:53 AM EDT) Specimen Anatomical Collection Method Collection Time Receive d Time (Source) Location / / Volume Laterality AP Specimen 06/11/2021 9:53 AM 1 9:53 EDT AM EDT Narrative [facility] - 06/11/2021 9:53 AM EDT Specimen requisition ordered. ??Separate Pathology report to follow Juana Sabillon MD PATHOLOGY/CYTOLOGY ORDERABLE S Performing Organization Address City/State/[place] [address] Specimen to Pathology (06/11/2021 9:53 AM EDT) Specimen Anatomical Collection Method Collection Time Receive d Time (Source) Location / / Volume Laterality AP Specimen 06/11/2021 9:53 AM 1 9:53 EDT AM EDT Narrative [facility] [place] - 06/11/2021 9:53 AM EDT Specimen requisition ordered. ??Separate Pathology report to follow Juana Sabillon MD PATHOLOGY/CYTOLOGY ORDERABLE S Performing Organization Address City/[facility]/[place] [address] Specimen to Pathology (06/11/2021 9:53 AM EDT) Specimen Anatomical Collection Method Collection Time Receive d Time (Source) Location / / Volume Laterality AP Specimen 06/11/2021 9:53 AM 1 9:53 EDT AM EDT Narrative [facility] [place] - 06/11/2021 9:53 AM EDT Specimen requisition ordered. ??Separate Pathology report to follow Juana Sabillon MD PATHOLOGY/CYTOLOGY ORDERABLE S Performing Organization Address City/State/[place] [address] Specimen to Pathology (06/11/2021 9:53 AM EDT) Specimen Anatomical Collection Method Collection Time Receive d Time (Source) Location / / Volume Laterality AP Specimen 06/11/2021 9:53 AM 1 9:53 EDT AM EDT Narrative [facility] [place] - 06/11/2021 9:53 AM EDT Specimen requisition ordered. ??Separate Pathology report to follow Juana Sabillon MD PATHOLOGY/CYTOLOGY ORDERABLE S Performing Organization Address City/State/[place] [address] Specimen to Pathology (06/11/2021 9:53 AM EDT) Specimen Anatomical Collection Method Collection Time Receive d Time (Source) Location / / Volume Laterality AP Specimen 06/11/2021 9:53 AM 1 9:53 EDT AM EDT Narrative [facility] - 06/11/2021 9:53 AM EDT Specimen requisition ordered. ??Separate Pathology report to follow Juana Sabillon MD PATHOLOGY/CYTOLOGY ORDERABLE S Performing Organization Address City/[facility]/[place] [address] Specimen to Pathology (06/11/2021 9:53 AM EDT) Specimen Anatomical Collection Method Collection Time Receive d Time (Source) Location / / Volume Laterality AP Specimen 06/11/2021 9:53 AM 1 9:53 EDT AM EDT Narrative [facility] - 06/11/2021 9:53 AM EDT Specimen requisition ordered. ??Separate Pathology report to follow Juana Sabillon MD PATHOLOGY/CYTOLOGY ORDERABLE S Performing Organization Address City/State/ZIP Code Phon e Number [place] [phone] [address] Specimen to Pathology (06/11/2021 9:53 AM EDT) Specimen Anatomical Collection Method Collection Time Receive d Time (Source) Location / / Volume Laterality AP Specimen 06/11/2021 9:53 AM 1 9:53 EDT AM EDT Narrative [facility] - 06/11/2021 9:53 AM EDT Specimen requisition ordered. ??Separate Pathology report to follow Juana Sabillon MD PATHOLOGY/CYTOLOGY ORDERABLE S Performing Organization Address City/[facility]/[place] [address] Specimen to Pathology (06/11/2021 9:53 AM EDT) Specimen Anatomical Collection Method Collection Time Receive d Time (Source) Location / / Volume Laterality AP Specimen 06/11/2021 9:53 AM 1 9:53 EDT AM EDT Narrative [facility] - 06/11/2021 9:53 AM EDT Specimen requisition ordered. ??Separate Pathology report to follow Juana Sabillon MD PATHOLOGY/CYTOLOGY ORDERABLE S Performing Organization Address City/State/[place] [address] Specimen to Pathology (06/11/2021 9:53 AM EDT) Specimen Anatomical Collection Method Collection Time Receive d Time (Source) Location / / Volume Laterality AP Specimen 06/11/2021 9:53 AM 1 9:53 EDT AM EDT Narrative [facility] - 06/11/2021 9:53 AM EDT Specimen requisition ordered. ??Separate Pathology report to follow Juana Sabillon MD PATHOLOGY/CYTOLOGY ORDERABLE S Performing Organization Address City/[facility]/[place] [address] Specimen to Pathology (06/11/2021 9:53 AM EDT) Specimen Anatomical Collection Method Collection Time Receive d Time (Source) Location / / Volume Laterality AP Specimen 06/11/2021 9:53 AM 1 9:53 EDT AM EDT [facility] 9:53 AM EDT Specimen requisition ordered. ??Separate Pathology report to follow Juana Sabillon MD PATHOLOGY/CYTOLOGY ORDERABLE S Performing Organization Address City/[facility]/[place] [address] documented in this encounter Visit Diagnoses Diagnosis Malignant neoplasm of prostate documented in this encounter Care Teams Renderer Relationship Specialty Start Date End Date Darin Lozano MD PCP - General Family Medicine 03/29/19 [address] [place] [id number] documented as of this encounter
--- OUTSIDE RECORDS SUMMARY | 2022-06-21 14:03 | XMS_ITS | Encounter Summary ---
:1970 Author Organization [facility] [place] [address] Care Team Providers Name Role Phone Darin Lozano MD Primary Care Provider Reason for Visit Consultation (Routine) - Closed Specialty Diagnoses / Procedures Referred By Contact Refer red To Contact Radiation Oncology Diagnoses Malignant neoplasm of prostate prostate cancer Flako Avelar Kapadia, Nirav S, MD Procedures treatment options [address] [place] [address] DR Yo [facility] [address] [place] [phone] Fax: Referral ID Status Reason Start Date Expiration Date Visits Requ ested Visits Authorized [id number] Closed 04/30/2022 04/30/2023 1 1 Encounter Details Date Type Department Care Team Description 06/21/2022 Office Visit Radiation Oncology at [facility] M alignant neoplasm of [facility] MD prostate [address] [place] [address] [place], [place] RADIATION ONCOL OGY [address] [place], [place] [phone] (Wo rk) Social History Tobacco Use Types Packs/Day Years Used Date Never Smoker Smokeless Tobacco: Never Used Alcohol Use Standard Drinks/Week Comments Yes 2 (1 standard drink = 0.6 oz pure alcoho l) slevin occasionally Alcohol Habits Answer Date Recorded How often do you have a drink containing alcohol? Not asked How many drinks containing alcohol do you have on a Not aske d typical day when you are drinking? How often do you have six or more drinks on one Not asked occasion? Comment: selvin occasionally 06/21/2022 Financial Resource Strain Answer Date Recorded How [...] to sleep or slept in a senior living (including now)? Sex Assigned at Date Recorded Not on file documented as of this encounter Last Filed Vital Signs Vital Sign Reading Time Taken Comments Blood Pressure 128/62 06/21/2022 10:00 AM EDT Pulse 74 06/21/2022 10:00 AM EDT Temperature 36.9 ??C (98.4 ??F) 06/21/2022 10:00 AM EDT Respiratory Rate 18 06/21/2022 10:00 AM EDT Oxygen Saturation 100% 06/21/2022 10:00 AM EDT Inhaled Oxygen Concentration - - Weight 102.2 kg (225 lb 3.2 oz) 06/21/2022 10:00 AM EDT Height - - Body Mass Index 30.17 06/11/2021 8:23 AM EDT documented in this encounter Patient Instructions Patient InstructionsEnzo Bennett MD - 06/21/2022 11:00 AM EDT Images from the original note were not included. Dear Mr. Mario, Dr. Avelar asked for me to see you to discuss how radiation therapy can be used to treat your prostate cancer and this note is to recap our discussion regarding use of radiation treatments. As your radiation oncologist, I work closely with your other healthcare providers and most importantly, with you to make sure that the treatments we discuss and offer keep your personal preferences and goals in mind. We discussed the following next steps as part of your cancer evaluation and/or treatment: Reason for Radiation Treatments: Dr. Avelar asked you to see me to discuss post-operative radiationfor your prostate cancer for 3 major reasons: 1. Your PSA is detectable. After surgery it should be zero. However yours is declining, between measurements from February and April. 2. Your prostate cancer was extending outside of your prostate. 3. There was prostate cancer left behind by the surgery (a positive margin). We know from several studies that if we treat pelvic lymph nodes and the area where the prostate used to be (the prostate bed), it reduces the likelihood of prostate cancer coming back and increases the chance of prostate cancer cure. I believe this to be a firm recommendation. Timing of Radiation Treatments: There is some uncertainty about timing of when we start the radiation after surgery. Generally speaking, starting sooner is better than later, however we should make sure you have completely recovered from surgery. In general, I recommend treating most patients when/if the PSA gets close to or crosses the 0.10 level. (Yours is currently lower and seems to be declining,so we have some time). I recommend we recheck the PSA the the next few weeks to understand if it is still declining. Hormone Deprivation Therapy: Two major studies have shown that use of anti- testosterone therapy in addition to radiation reduces the risk of prostate cancer coming back and may increase the likelihood of curing prostate cancer. This is because prostate cancer uses testosterone as a fuel for growth. The duration of anti-hormone therapy varies according to how it was studied, but most doctors would recommend at least 6 months. The medication we use is called Lupron, and it is generally given as a shotinto your buttock either once a month, or every 3 months. There is also an option to just get a single 6 month shot. Mapping scan to plan your radiation treatments: Your radiation therapy will involve using high energy radiation which kills cancer but also normal healthy tissues. In order to make sure the radiationgoes to the cancerous tissues and to also avoid radiating the normal tissues, we design radiation beams beams into special shapes which come from various different directions. Because no two people andno two cancers are completely identical, the radiation plan we create for you will be unique to you and your body. In order to figure out how many beams to use, how much radiation to give, which anglesthey should come from, and how they should be shaped, we have asked you to undergo a mapping scan here in our department known as a CT simulation, or CT sim, for short. This is essentially a CAT-scansimilar to scans which you may have received before, but slightly different in a few ways: First, itallows us to place you in the exact same position which you should expect to be placed during each of your radiation treatment sessions. Second, it lets us better understand where the radiation targetsand the normal tissues that we want to avoid exist, in relation to each other and the radiation beams. Following this scan, we then perform additional calculations and measurements to create the absolute best plan possible for you. Depending on the complexity of the plan, these processes can take fromjust few hours to several days, and for that we ask for your patience. If you have any questions about the planning process or your custom radiation plan, I would be more than happy to review the plan with you during your first week of treatment. I anticipate you will receive 39 treatments total, daily Friday-Friday for almost 8 weeks. Your start date and time will be provided once the simulation scan is completed. During your radiation treatments, you can expect to see me once per week so that I can examine you to make sure you are tolerating radiation treatments and so that we can monitor your response to treatment. If you need to see me any other day, one of my colleagues or I would be happy tosee you - just ask one of the radiation therapists or radiation nurses for assistance. Side Effects: We talked about the risks of radiation which primarily include irritative symptoms of the bowel and bladder, which may result in more frequent urination and bowel movements. The incontinence you are experiencing will stop improving once radiation starts (and this is why we wait until youhave fully recovered from surgery). Impotence that you are experiencing after surgery will not improve after from radiation. The main short term side effects of anti- hormone therapy are hot flashes, mood swings, fatigue, and decreased sexual interest / impotence, which improves once the therapy is discontinued. alf risks include loss of muscle/strength, weight gain, and possibly osteoporosis. Please do not hesitate to call me at [phone] with any other questions or concerns you have. If I am not here, one of our radiation oncology nurses can assist you or help you get in touch with me. A Radiation Oncology doctor is also associate application developer after our normal hours and on weekends for urgent questions or concerns related to radiation treatments that can not wait until normal business hours. To reach the on-call doctor after-hours, just call and have the bullet swaging machine operator page the Radiation Oncologist associate application developer. Sincerely, Enzo Bennett MD, MS Radiation Oncology documented in this encounter Progress Notes Enzo Bennett MD - 06/21/2022 11:00 AM EDT Images from the original note were not included. Radiation Oncology Prostate Cancer Consult Note Enzo Bennett MD, MS [facility] [phone] PATIENT IDENTIFICATION: PATIENT NAME: Ti Mario Jr. DATE OF : 1970 REFERRING PROVIDER: Dr Avelar (Urology / [facility]) PRIMARY CARE PROVIDER: Dr Lozano REASON FOR CONSULTATION : Cancer Staging Malignant neoplasm of prostate Staging form: Prostate, AJCC 8th Edition - Clinical: Stage IIA (cT1c, cN0, cM0, PSA: 10.6, Grade Group: 1) - Signed by Enzo Bennett MD on 04/20/2021 - Pathologic: Stage IIIB (pT3a, pN0, cM0, PSA: 15, Grade Group: 2) - Signed by Enzo Bennett MD on 06/19/2022 HISTORY OF PRESENT ILLNESS: Ti Mario Jr. is a 51 y.o. male diagnosed with a high-risk prostate cancer s/p RALP 01/16/22. PSA History: 06/23/20 - 9.775 03/06/21 - 10.63 09/03/21 - 15.028 01/16/22 - <<RALP>> 02/20/22 - 0.089 04/23/22 - 0.063 Surgical Pathology Results: RALP 01/16/22 Gl 3+4 pT3a +SM - right apex, left anterior Prior consultations / recommendations: Dr Avelar - 04/29/22 - His PSA is down to 0.063 which is encouraging. He remains concerned over his adverse pathology. We discussed adjuvant vs salvage radiation I recommend that he meet with a radiation oncologist to discuss adjuvant xrt Typically I would watch his PSA and treatment would be triggered with rising PSA, but he is quite young and I would like to see if there would be a potential benefit to earlier therapy. Ti is here today to discuss radiation therapy for the biochemical failure of his high risk prostate cancer. REVIEW OF SYSTEMS: On further questioning, he reports feeling well and in his usual state of health. Most recent colonoscopy was 2017. He is currently using no pads though has some mild, occasional leakage. Nocturia is 1/nt. He has been unable to have any erections since time of surgery though did have good function preop. A comprehensive 14 point review of systems was conducted with this patient and is otherwise negativeexcept as documented above. This patient reported questionnaire is available for review in 'scanned documents.' Baseline SIDNEY and IPSS are as below: Prostate IPSS and SIDNEY(Pt Entered): Today's answers and scores Prostate Scores and Responses 06/21/2022 Confidence, level - past 6 months Very low Penetration - past 6 months No sexual activity Penetration, maintain - past 6 months Did not attempt intercourse Erection, maintain - past 6 months Did not attempt intercourse Sexual satisfaction - past 6 months Did not attempt intercourse Sexual Health in Men 1 (SEVERE ED) Incomplete emptying Not at all Frequency Less than 1 time in 5 Intermittency Less than 1 time in 5 Urgency Not at all Weak Stream Less than 1 time in 5 Straining Not at all Nocturia 1 time Quality of life Mixed - about equally satisfied and dissatisfied Total IPSS Score 4 ( MILD LUTS) EPIC-PC Responses 06/21/2022 Urinary Incontinence Symptom Score 2 Urinary Irritation/Obstructive Symptom Score 0 Bowel Symptom Score 0 Vitality/Hormonal Symptom Score 0 Overall Prostate Cancer QOL Score 2 Urinary function problem Very small problem Urinary control Occasional dribbling # of pads used per day None Urinary dripping/leakage problem Very small problem Pain or burning with urination No problem Weak urine stream/incomplete bladder emptying No problem Need to urinate frequently No problem Rectal pain or urgency of bowel movements No problem Increased frequency of your bowel movements No problem Overall problems with your bowel movements No problem Bloody stools No problem Ability to reach orgasm Very poor to none Quality of your erections None at all Problem with sexual function or lack of it Big problem Hot flashes or breast tenderness/enlargement No problem Feeling depressed No problem Lack of energy No problem PAST MEDICAL HISTORY Past Medical History: Diagnosis Date ??? Prostate cancer Past Surgical History: Procedure Laterality Date ??? COLONOSCOPY 2017 at [facility] had 3 polyps removed ??? US GUIDED BIOPSY PROSTATE ([place] ONLY) 03/29/2019 US Guided Transrectal Biopsy 03/29/2019 [facility] RAD ULTRASOUND ??? US GUIDED BIOPSY PROSTATE WITH URONAV FUSION 06/11/2021 US Guided Biopsy Prostate with Uronav Fusion 06/11/2021 [facility] RAD ULTRASOUND CONTRAINDICATIONS TO RADIATION THERAPY: None ?? Prior radiation therapy: No ?? Active Lupus: No ?? Systemic Scleroderma: No MEDICATIONS AND ALLERGIES: Medications 06/21/22 1111 Medication Sig Taking? omeprazole (PriLOSEC) 20 mg Capsule, Delayed Release(E.C.) Take 20 mg by mouth daily as needed. Yes tadalafiL (CIALIS) 5 mg Tablet Take 5 mg by mouth daily. albuterol 90 mcg/actuation HFA Aerosol Inhaler Inject as directed. No Known Allergies SOCIAL HISTORY: Lindsey: [place], [place] Living Situation: With Transit time to [facility]: 90 mins Employment history: Retired commissioned police officer Smoking: denies Alcohol occ [facility] Illicits: denies FAMILY HISTORY: History reviewed. No pertinent family history. PHYSICAL EXAM BP 128/62 (Patient Position: Sitting) Pulse 74 Temp 36.9 ??C (98.4 ??F) Resp 18 Wt 102.2 kg (225 lb 3.2 oz) SpO2 100% BMI 30.17 kg/m?? General: alert, well appearing, and in no distress sitting in exam room alone SHIVANI: deferred TODAY'S PERFORMANCE STATUS: KPS Score ECOG Grade Definition XX 90-100 0 Fully active, able to carry [...] selfcare; totally confined to bed or chair ASSESSMENT / PLAN: Ti Mario Jr. is a 51 y.o. man diagnosed with high-risk prostate cancer (pT3aN0, Gl 3+4, +SM) s/p RALP 01/16/22. Postoperatively his PSA did not jt to zero however it has been but declining postop, down to most recently 0.063 in 04/2022. I discussed the role of a Pylarify PSMA PET scan to rule out distant metastatic disease. However given PSA it may not be particularly revealing. Today we reviewed the risks, benefits, rationale, implications and alternatives of the various management options - primarily observation with intent for early salvage vs immediate adjuvant therapy. Heunderstands that treatment is offered based on his multiple high risk features as above. Randomized data has historically suggested a survival benefit to adjuvant / immeidate postoperative radiotherapyin these situations - however three recent trials enrolling high risk post-operative patients (RADICALS, RAVES and GETUG/AFU-17) examining the benefit of early salvage vs adjuvant therapy failed to demonstrate benefit to early therapy - both individually and as part of a more robustly powered pooled analysis (ARTISTIC). In the short term, I reviewed the common irritative bowel and bladder side effects associated with all forms of radiotherapy. In the intermediate project manager, I explained there is an approximately 2% chance of serious bladder or rectal toxicity as well as a very low risk of inducing a secondary malignancy. I also reviewed the role of short-term ADT (6 months based on RTOG 0534 and GETUG-16. I reviewed side effects associated with this treatment. He understands there is a survival benefit when ADT is added to radiotherapy, and that side effects can include diminished libido, hot flashes, weight gain, mood swings, depression and/or osteoporosis. We reviewed clinical trials for which he may be eligible - of which none currently apply to Ti. On balance, he wishes to proceed with recheck of PSA. Follow-up appointments will be made accordingly. All of his questions were answered to his satisfaction, and we have provided him with our contact information should any further questions or concerns arise. SUMMARY OF PLAN / RECOMMENDATION: 1. Intent of therapy: Curative (Adjuvant / Early Salvage) 2. Clinical Trial Availability: No 3. Recheck PSA --> TOV with results and next steps (eg proceed towards radiation vs continued observation) TIME ATTESTATION: I certify spending at least 60 minutes in providing care to this patient today, 06/21/22 as reflected by the following activities: - review of his medical record in the chart, including interpretation of imaging, laboratory and pathologic studies referenced above - discussion of the above with the patient as part of shared medical decision making - documenting the outcome of today's visit as above ENZO BENNETT MD, MS Marty Funk RN - 06/21/2022 11:00 AM EDT RADIATION ONCOLOGY NURSING INITIAL NURSING ASSESSMENT IDENTIFICATION: Ti Mario Jr. is a 51 y.o. year-old male with Prostate CA PRESENTING SYMPTOMS/CHIEF COMPLAINT: REVIEW OF SYSTEMS: Review of Systems - Oncology REVIEW OF SYSTEMS 06/21/2022 Constitutional None of the above Ear / nose / throat / mouth None of the above Eyes None of the above Respiratory None of the above Cardiovascular None of the above Gastrointestinal None of the above Skin, hair None of the above Musculoskeletal None of the above Neurological None of the above Hematologic / Lymphatic None of the above Genitourinary Sexual problems, Dribbling IN THE PAST 12 MONTHS HAVE YOU: Fallen more than one time? No Injured yourself as result of the fall? No Experienced difficulty with walking/problems with balance? No Do you use any assistive devices? No Any history of collagen vascular diseases:No Any Implanted Devices/Hardware: No If yes please put alert in ARIA patient summary Prior Radiotherapy: No Prior Chemotherapy: No Prior Hormone Therapy: No Other: Patient denies history of Scleroderma and Lupus LEARNING ASSESSMENT REVIEWED: Yes ADVANCED DIRECTIVE: Not discussed today. PAIN ASSESSMENT: [0] out of 10 eD-H Adult PCS Flow Sheet if 4 or above SOCIAL ASSESSMENT: See EDH social assessment information entered. Support Systems: Aria () [place] (Daughter) Rissa (granddaughter) Dogs Nam and everest Barriers to treatment: None Referrals/Interventions: food and drink factory workers visit on day per routine. RADIATION SPECIFIC TEACHING:Will provide the following information on day [facility] Radiation Therapy and You Site specific teaching : Other: PLAN: Per Answers for HPI/ROS submitted by the patient on 06/21/2022 Distress: 0 documented in this encounter Plan of Treatment Scheduled Orders Name Type Priority Associated Diagnoses Order S chedule PSA (Ultrasensitive) Lab Routine Malignant neoplasm o f Expected: 06/21/2022 prostate (Approximate), Expires: 12/21/2022 documented as of this encounter Visit Diagnoses Diagnosis Malignant neoplasm of prostate documented in this encounter Care Teams Pattern Maker Programer Relationship Specialty Start Date End Date Darin Lozano MD PCP - General Family Medicine 03/29/19 [address] [place] [address] documented as of this encounter
--- OUTSIDE RECORDS SUMMARY | 2022-06-21 14:03 | XMS_ITS | Encounter Summary ---
:1970 Author Organization [facility] [place] [address] Care Team Providers Name Role Phone Winston Li MD Primary Care Provider Encounter Details Date Type Department Care Team Description 12/28/2018 External Results Medical Records Provider, Scanning [facility] [place] [address] Social History Tobacco Use Types Packs/Day [...] place to sleep or slept in a care home (including now)? Sex Assigned at Date Recorded Not on file documented as of this encounter Plan of Treatment Not on filedocumented as of this encounter Procedures Procedure Name Priority Date/Time Associated Diagnosis Comme nts SURGICAL PATHOLOGY Routine 12/28/2018 Results f or this SCAN procedure are i n the results section . documented in this encounter Results Scan Doc: Surgical Pathology (12/28/2018) Narrative This result has an attachment that is no t available. Historical Provider MD MEDIA MGR SCAN EXT ORDR/RSLT documented in this encounter Visit Diagnoses Not on filedocumented in this encounter Care Teams Criminal Justice Faculty Relationship Specialty Start Date End Date Winston Li MD PCP - General 08/14/10 03/28/19 documented as of this encounter
--- OUTSIDE RECORDS SUMMARY | 2022-06-21 14:03 | XMS_ITS | Encounter Summary ---
:1970 [place] [address] Care Team Providers Name Role Phone Darin Lozano MD Primary Care Provider Encounter Details Date Type Department Care Team Description 12/01/2019 Laboratory Appointment Lab 3L [facility] [place] [id number] Social History Tobacco Use Types Packs/Day Years [...] Name Priority Date/Time Associated Diagnosis Comme nts HC VENIPUNCTURE STAT 12/01/2019 1:12 PM Malignant neoplasm of Results for this EDT prostate procedure are i n the results section. documented in this encounter Results (ABNORMAL) PSA (Ultrasensitive) (12/01/2019 1:12 PM EDT) Analysis Performed At [facility] Time Signature PSA Total 8.30 (H) 0.00 - [facility] (Ultrasensitiv 4.00 ng/mL [facility] LABORATORY Specimen Anatomical Collection Method Collection Time Receive d Time (Source) Location / / Volume Laterality Blood specimen 12/01/2019 1:12 PM 020 1:24 (specimen) EDT PM EDT Resulting Agency Comment Spec In Lab Ralf Sabillon MD CHEMISTRY ORDERABLES Performing Organization Address City/State/ZIP [place] [address] documented in this encounter Visit Diagnoses Diagnosis Malignant neoplasm of prostate documented in this encounter Care Teams Material Flow Analyst Relationship Specialty Start Date End Date Darin Lozano MD PCP - General Family Medicine 03/29/[address] [place] [phone] documented as of this encounter
--- OUTSIDE RECORDS SUMMARY | 2022-06-21 14:03 | XMS_ITS | Encounter Summary ---
:1970 Author Organization [facility] [place] [address] Care Team Providers Name Role Phone Darin Lozano MD Primary Care Provider Encounter Details Date Type Department Care Team Description 11/24/2019 Telephone Urology [place] [facility] Ralf Sabillon MD [facility] [place] [phone] UROLOGY [phone] [place], [place] [address] (Wo rk) Social History Tobacco [...] this encounter Miscellaneous Notes Telephone Encounter - Evelia Valdovinos - 11/24/2019 3:28 PM EST LMOM to see if pt would like to bump up 11/30 appointment to 11/25 at either 2:20 or 2:40. documented in this encounter Plan of Treatment Not on filedocumented as of this encounter Visit Diagnoses Not on filedocumented in this encounter Care Teams Beam Saw Operator Relationship Specialty Start Date End Date Darin Lozano MD PCP - General Family Medicine 03/29/[address] [place] [phone] documented as of this encounter
--- OUTSIDE RECORDS SUMMARY | 2022-06-21 14:03 | XMS_ITS | Encounter Summary ---
:1970 Author Organization [facility] [place] [address] Care Team Providers Name Role Phone Darin Lozano MD Primary Care Provider Reason for Visit Consultation (Routine) - Closed Specialty Diagnoses / Procedures Referred By Contact Refer red To Contact Urology Diagnoses PROSTATE CANCER Ortega Barrios MD [facility] [address] [place] [address] [place] [address] Fax: Referral ID Status Reason Start Date Expiration Date Visits Requ ested Visits Authorized [id number] Closed 02/02/2019 02/02/2020 1 1 Encounter Details Date Type Department Care Team Description 03/29/2019 Procedure visit Hematology and Ralf Sabiloln neoplasm Oncology at [facility] MD Rohan of prostate [facility] [address] [place] [address] [place] [address] [phone] Social History Tobacco Use Types Packs/Day Years [...] place to sleep or slept in a detention (including now)? Sex Assigned at Date Recorded Not on file documented as of this encounter Last Filed Vital Signs Vital Sign Reading Time Taken Comments Blood Pressure 129/85 03/29/2019 10:05 AM EDT Pulse 79 03/29/2019 10:05 AM EDT Temperature 36.8 ??C (98.2 ??F) 03/29/2019 10:05 AM EDT Respiratory Rate 18 03/29/2019 10:05 AM EDT Oxygen Saturation 100% 03/29/2019 10:05 AM EDT Inhaled Oxygen Concentration - - Weight 101 kg (222 lb 10.6 oz) 03/29/2019 10:05 AM EDT Height 181.7 cm (5' 11.54) 03/29/2019 10:05 AM EDT Body Mass Index 30.59 03/29/2019 10:05 AM EDT documented in this encounter Patient Instructions Patient InstructionsDaMayi ross RN - 03/29/2019 10:00 AM EDT PROSTATE BIOPSY DISCHARGE INFORMATION You will get a call next week with your biopsy pathology. Your pathology result may be released to your [facility] account before we have had a chance to contact you. You should feel free to check your [facility] if you would like to see if [...] after these hours, please call the hospital gradall operator at and ask to have the [...] blood clears in your urine and stool. We suggest no heavy lifting, straining, or [...] encounter Progress Notes Mayi Lemons RN - 03/29/2019 10:00 AM EDT Prostate IPSS and SIDNEY(Pt Entered): Today's answers and scores Prostate Scores and Responses 03/29/2019 Confidence, level - past 6 months High Penetration - past 6 months Almost always or always Penetration, maintain - past 6 months Almost always or always Erection, maintain - past 6 months Not difficult Sexual satisfaction - past 6 months Almost always or always Sexual Health in Men 24 Incomplete emptying Less than half the time Frequency More than half the time Intermittency Less than 1 time in 5 Urgency Not at all Weak Stream Not at all Straining Not at all Nocturia 1 time Quality of life Pleased Total IPSS Score 8 (MODERATE LUTS) Rosie Sheppard MD - 03/29/2019 10:00 AM EDT ??Reason for Visit: Ti Griffin Fabiano Christianson is a 48 y.o. patient referred by Dr. Barrios for possible fusion biopsy. GREGORIA Mario is a 48 yo M with recently diagnosed low risk prostate cancer, on active surveillance. He underwent TRUS biopsy with Dr Barrios in 11/2018, PSA at the time 7.6. Path below: Left apex, grade group 1, 70% of the core Right apex, GG1, 5% Left lateral base, GG1, 12% (+perineural invasion) Left lateral mid, GG1, 25% Also had a Prolaris test performed, molecular score was 2.8. This placed him at 1.8% disease specific mortality at 10 yrs with conservative management. He underwent an MRI 02/2019 which was negative. Prostate Scores and Responses 03/29/2019 Confidence, level - past 6 months High Penetration - past 6 months Almost always or always Penetration, maintain - past 6 months Almost always or always Erection, maintain - past 6 months Not difficult Sexual satisfaction - past 6 months Almost always or always Sexual Health in Men 24 Incomplete emptying Less than half the time Frequency More than half the time Intermittency Less than 1 time in 5 Urgency Not at all Weak Stream Not at all Straining Not at all Nocturia 1 time Quality of life Pleased Total IPSS Score 8 (MODERATE LUTS) Physical Exam He appears healthy and in no distress. Examination of the hands, head, neck, eyes, ears, nose, and throat is normal. The skin is normal. There is no lymphadenopathy or thyroidomegaly. The chest is clear to percussion and auscultation. Heart sounds I and II are normal without murmurs or added sounds. Peripheral pulses are full withoutbruits. The abdomen is benign. There are no masses or organomegaly. Examination of the extremities and neurological examination is grossly normal. Rectal tone is normal. Rectal exam shows a 29 g benign prostate without nodules. There were no otherpalpable masses. Lab values are reviewed and are as noted in the history. PSA 03/2019 8.5 01/2019 7.048 06/2018 7.680 05/2018 7.809 X-rays are reviewed and are as noted in the history MRI 02/2019 IMPRESSION ?? No focal lesions: PI-RADS 1. Clinically significant disease is highly unlikely to be present. ?? Impression/Plan: 48 yo M with low risk prostate cancer on , dx in 11/2018 (PSA 7.6, grade group 1 in 4/12 cores). MRI with no targetable lesions. He presents today for repeat biopsy on protocol. Will perform standard template biopsy and call patient with results in 7-10 days. Discussed that he is at high risk of pr ogression/needing definitive treatment for his prostate cancer at some point in his life, given thathe is only 48 years of age right now. That being said, he is inclined to continue with for now aslong as the biopsy is consistent with low risk disease. Again will call with results and likely refer back to Dr Barrios for continued surveillance. Sylvia Sheppard Urology PGY-5 Ralf Sabillon MD - 03/29/2019 10:00 AM EDT Procedure Note Procedure: Transrectal ultrasound and prostate biopsy Surgeon: Ralf Sabillon Preoperative Diagnosis: Low risk prostate cancer on active surveillance, negative MRI Post Operative Diagnosis: Successful Biopsy Complications: None [...] sagittal and transverse dimensions. Prostate volume was 25 cc. The prostate was homogeneous. Prostate calcifications were observed at the junction of the peripheral and transition zones. Hypochoic areas: None Rectum, periprostatic structures, visualized areas of the bladder, vas deferens and seminal vesiclesall appeared normal Prostatic anaesthesia was achieved in the standard fashion. A series of prostatic biopsies were obtained from the lateral apex, mid,and base as well as mid sagittal apex, mid and base. Biopsies were obtained from both the right and left side of the prostate. Additional biopsies: none A total of 12 biopsies were obtained. The patient tolerated the [...] MAR Action Action Date Dose Rate Site fosfomycin tromethamine (MONUROL) Given 03/29/2019 10:10 AM EDT 3 g packet 3 g 3 g, Oral, ONCE, 1 dose, On Fri03/29/19 at 1045, Pour the entire contents of a sachet containing the equivalent of 3 g of fosfomycin into 4 oz (1/2 cup) of water; do not use hot water. Stir to dissolve. Give immediately after dissolving., Routine levoFLOXacin (LEVAQUIN) tablet 500 mg Given 03/29/2019 10:10 AM EDT 500 mg 500 mg, Oral, ONCE, 1 dose, On Fri03/29/19 at 1045, Routine documented in this encounter Care Teams Wind Up Operator Relationship Specialty Start Date End Date Darin Lozano MD PCP - General Family Medicine 03/29/[address] [place] [phone] documented as of this encounter
--- OUTSIDE RECORDS SUMMARY | 2022-06-21 14:03 | XMS_ITS | Encounter Summary ---
:1970 Author Organization [facility] [place] [address] Care Team Providers Name Role Phone Darin Lozano MD Primary Care Provider Encounter Details Date Type Department Care Team Description 04/16/2019 Hospital Encounter Laboratory [facility] [place] [address] Social History Tobacco Use Types Packs/Day [...] Associated Diagnosis Comme nts SURGICAL PATHOLOGY Routine 04/16/2019 9:47 AM Res ults for this REPORT EDT procedure are i n the results section. documented in this encounter Results Surgical Pathology Report (04/16/2019 9:47 AM EDT) Component Value Ref Test Analysis Performed At [facility] Range Method Time Signature Surgical [id number] ? Location: [facility] Report The signing pathologist has (i) examined the relevant preparation(s) for the [facility] specimen(s) and (ii) rendered or confirmed the diagnosis(es) . HOSPITAL LABORATORY . ?Surgic al Pathology DIAGNOSIS Rectum, ??polypectomy: Tubular adenoma. CR-PX Electronically signed by: ??Karine BRISCOE PhD, Vincenzo Walsh Verified: ??04/20/2019 ?Pathologist Performed at: ??-[facility] Dept. of Pathology, [place], [place] CLINICAL INFORMATION Specimen Submitted: A - Rectal polyp Clinical History and Diagnosis: Colon cancer screening Referring Identifier: ??[id number] SPECIMEN PROCESSING A - Labeled/Fixative: A rectal polyp, formalin. Quantity/Size: Single, 0.4 cm. Tissue Description: Slightly firm, ventura-pink polyp. Sections/Processing: Inked, bisected and entirely submitted in 1 cassette labeled A1. ??apb Specimen (Source) Anatomical Collection Method Collection Time Re ceived Time Location / / Volume Laterality 04/16/2019 9:47 AM EDT Resulting Agency Comment Spec In Lab / AV Volodymyr Pfeiffer MD PATHOLOGY/CYTOLOGY ORDERABLE S Performing Organization Address City/State/[place] [address] documented in this encounter Visit Diagnoses Not on filedocumented in this encounter Care Teams Agricultural Researcher Relationship Specialty Start Date End Date Darin Lozano MD PCP - General Family Medicine 03/29/[address] [place] [phone] documented as of this encounter
--- OUTSIDE RECORDS SUMMARY | 2022-06-21 14:03 | XMS_ITS | Encounter Summary ---
:1970 Author Organization [facility] [place] [address] Care Team Providers Name Role Phone Darin Lozano MD Primary Care Provider Reason for Referral Diagnostic Test (Routine) - Closed Specialty Diagnoses / Procedures Referred By Contact Refer red To Contact Radiology Diagnoses Malignant neoplasm of prostate Ralf Sabillon MD [facility] Rad Mri Procedures MRI Pelvis wwo (Prostate) [facility] [place] [address] [place] [address] Referral ID Status Reason Start Date Expiration Date Visits V isits Requested Authorized [id number] Closed Specialty 06/01/2021 07/30/2021 1 1 Service Requested Encounter Details Date Type Department Care Team Description 05/03/2021 TH Visit Urology at [facility] Ralf Sabillon Malignant neoplasm of (TeleHealth) [facility] MD [place] [address] UROLOGY [phone] [place], [place] [address] Social History Tobacco Use Types Packs/Day Years [...] encounter Progress Notes Ralf Sabillon MD - 05/03/2021 3:20 PM EDT Patient Name: Ti Mario Jr. Date of Service: 05/03/2021 Primary Care Provider: Darin Lozano MD Reason [...] lateral apex: ? Adenocarcinoma, grade group 1, Chunky grade 3+3, ? involving 5-10% of the biopsy core. D - Prostatic core needle biopsy, right base: ? Microscopic atypical glandular focus. E - Prostatic core needle biopsy, right mid: ? Adenocarcinoma, grade group 1, Earnestine grade 3+3, ? involving 20% of the biopsy core. F - Prostatic core needle biopsy, right apex: ? Adenocarcinoma, grade group 1, Chunky grade 3+3, ? involving 30% of the biopsy core. G - Prostatic core needle biopsy, left lateral base: ? Benign prostatic tissue. H - Prostatic core needle biopsy, left lateral mid: ? Microscopic atypical glandular focus. I - Prostatic core needle biopsy, left lateral apex: ? Adenocarcinoma, grade group 1, Chunky grade 3+3, ? involving 20% of the biopsy core (discontinuous ? involvement). J - Prostatic core needle biopsy, left base: ? Benign prostatic tissue. K - Prostatic core needle biopsy, left mid: ? Benign prostatic tissue. L - Prostatic core needle biopsy, left apex: ? Adenocarcinoma, grade group 1, Earnestine grade 3+3, ? involving 50% of the biopsy core (discontinuous ? involvement). 11/2020 - 8.3 02/2021 - Appetite is good weight is stable. There [...] on #2: Minimal medical co-morbidity Plan: # Plan surveillance mpMRI / Biopsy 20 minutes spent in counseling and coordination of care documented in this encounter Plan of Treatment Scheduled Orders Name Type Priority Associated Diagnoses Order S chedule PSA (Ultrasensitive) Lab STAT Malignant neoplasm o f Expected: 05/03/2021 prostate (Approximate), Expires: 05/03/2022 documented as of this encounter Results MRI Pelvis wwo (Prostate) (06/04/2021 5:08 PM EDT) Anatomical Region Laterality Modality Pelvis Magnetic Resonance Specimen (Source) Anatomical Location Collection Method / Collectio n Time Received Time / Laterality Volume Impressions 06/05/2021 9:49 AM EDT Lesion 1 PZ: PIRADS cannot be assigned ( patient post treatment). T2 location: axial series 7, image 18; sagittal ??ser ies 8, image 16. Segmented in UroNav. PI-RADS v2.1 Assessment Categories PI-RADS 1 -- Very low (clinically signif icant cancer is highly unlikely to be present) PI-RADS 2 -- Low (clinically significant cancer is unlikely to be present) PI-RADS 3 -- Intermediate (the presence of clinically significant cancer is equivocal) PI-RADS 4 -- High (clinically significan t cancer is likely to be present) PI-RADS 5 -- Very high (clinically signi ficant cancer is highly likely to be present) References: Nish S1, David JH1, Foster S1, Smi th C1, Liao J1, Czarniecki M1, Gold S1, Rahman G1, Rayn K1, Dilan MJ1, Wood BJ1, Hernandez PA1, Chogarethe PL1, Turksaba B1. ??A Grading System for the Assessment of Ris k of Extraprostatic Extension of Prostate Cancer at Multiparametric MRI. Radiology. 2019 Nov;290(3):709-719. doi: 10.1148/radiol.7397871861. Epub 2018Oct 13. Thank you for letting us participate in the care of this patient. ??If you are a health care provider and have any questi ons regarding this report, please contact the number below. ??For patients who have questions please contact the health district manager primary care sales that requested your imaging first. ? Narrative 06/05/2021 9:49 AM EDT EXAMINATION: MRI PELVIS WWO (PROSTATE) CLINICAL HISTORY: Low risk prostate canc er on , rising PSA REASON FOR PROSTATE EXAM: HAS PATIENT HAD PREVIOUS BIOPSY?:Yes,2018 MOST RECENT PSA LEVEL:10 EARNESTINE SCORE:6 TECHNIQUE: Multiparametric MRI of the pr ostate prior to and following IV administration of 19 cc of Dotarem contr ast. ?? QUALITY: Meets PI-RADS technical criteri a. COMPARISON: None FINDINGS: Prostate dimensions: 2.9 x 4.6 x 4.3cm. Estimated prostate volume: 29.8cc (X x Y x Z x 0.52) PSA density: 0.33 (PSA/prostate volume > 0.15 susp, 0.25 highly susp) Peripheral zone: T2: Diffusely hypointen se. No focal lesions. Transition zone: Lesion 1 midline mid gland extending int o the base. T2: Lenticlular or non-circumscribed, ho mogeneous, moderate hypointensity, 2.2 x 1.5 cm axially, 1.8 centimeters cranioca udally. DWI: ??Mild hypointense of ADC and mildl y hyperintense on high b-value DWI. DCE-MRI: ??(-) No early arterial enhance ment.. ? Extraprostatic disease: Seminal vesicle involvement:No Lymphadenopathy:No Sphincter involvement:No Bladder involvement:No Osseous metastases: No . MRI-derived Extraprostatic extension ris k: none Other findings: None. Procedure Note Bobby Chew MD - 09/14/2021For matting of this note might be different from the original. EXAMINATION: MRI PELVIS WWO (PROSTATE) CLINICAL HISTORY: Low risk prostate canc er on , rising PSA REASON FOR PROSTATE EXAM: HAS PATIENT HAD PREVIOUS BIOPSY?:Yes,2018 MOST RECENT PSA LEVEL:10 EARNESTINE SCORE:6 TECHNIQUE: Multiparametric MRI of the pr ostate prior to and following IV administration of 19 cc of Dotarem contr ast. QUALITY: Meets PI-RADS technical criteri a. COMPARISON: None FINDINGS: Prostate dimensions: 2.9 x 4.6 x 4.3cm. Estimated prostate volume: 29.8cc (X x Y x Z x 0.52) PSA density: 0.33 (PSA/prostate volume > 0.15 susp, 0.25 highly susp) Peripheral zone: T2: Diffusely hypointen se. No focal lesions. Transition zone: Lesion 1 midline mid gland extending int o the base. T2: Lenticlular or non-circumscribed, ho mogeneous, moderate hypointensity, 2.2 x 1.5 cm axially, 1.8 centimeters cranioca udally. DWI: Mild hypointense of ADC and mildly hyperintense on high b-value DWI. DCE-MRI: (-) No early arterial enhanceme nt.. Extraprostatic disease: Seminal vesicle involvement:No Lymphadenopathy:No Sphincter involvement:No Bladder involvement:No Osseous metastases: No . MRI-derived Extraprostatic extension ris k: none Other findings: None. IMPRESSION Lesion 1 PZ: PIRADS cannot be assigned ( patient post treatment). T2 location: axial series 7, image 18; sagittal serie s 8, image 16. Segmented in UroNav. PI-RADS v2.1 Assessment Categories PI-RADS 1 -- Very low (clinically signif icant cancer is highly unlikely to be present) PI-RADS 2 -- Low (clinically significant cancer is unlikely to be present) PI-RADS 3 -- Intermediate (the presence of clinically significant cancer is equivocal) PI-RADS 4 -- High (clinically significan t cancer is likely to be present) PI-RADS 5 -- Very high (clinically signi ficant cancer is highly likely to be present) References: Nish S1, David JH1, Foster S1, Smi th C1, Liao J1, Amina M1, Gold S1, Rahman G1, Rayn K1, Kong MJ1, Yousif BJ1, Mary PA1, Edwin PL1, Danielle B1. A Grading System for the Assessment of Ris k of Extraprostatic Extension of Prostate Cancer at Multiparametric MRI. Radiology. 2019 Nov;290(3):709-719. doi: 10.1148/radiol.9273149907. Epub 2018Oct 13. Thank you for letting us participate in the care of this patient. If you are a health care provider and have any questi ons regarding this report, please contact the number below. For patients w ho have questions please contact the health district manager primary care sales that requested your imaging first. Ralf Sabillon MD IMG MRI ORDERABLES documented in this encounter Visit Diagnoses Diagnosis Malignant neoplasm of prostate Malignant neoplasm of prostate documented in this encounter Care Teams Energy Specialist Relationship Specialty Start Date End Date Darin Lozano MD PCP - General Family Medicine 03/29/19 [address] [place] [phone] documented as of this encounter
--- OUTSIDE RECORDS SUMMARY | 2022-06-21 14:03 | XMS_ITS | Encounter Summary ---
:1970 Author Organization [facility] Address [place] [id number] Care Team Providers Name Role Phone Darin Lozano MD Primary Care Provider Reason for Referral Diagnostic Test (Routine) - Closed Specialty Diagnoses / Procedures Referred By Contact Refer red To Contact Radiology Diagnoses Malignant neoplasm of prostate Ralf Sabillon MD [facility] Rad Mri Procedures MRI Pelvis wwo (Prostate) [facility] [address] [place] [address] Referral ID Status Reason Start Date Expiration Date Visits V isits Requested Authorized [id number] Closed Specialty 06/01/2021 07/30/2021 1 1 Service Requested Reason for Visit Diagnostic Test (Routine) - Closed Specialty Diagnoses / Procedures Referred By Contact Refer red To Contact Radiology Diagnoses Malignant neoplasm of prostate Ralf Sabillon MD [facility] Rad Mri Procedures MRI Pelvis wwo (Prostate) [place] [address] [place] [address] Referral ID Status Reason Start Date Expiration Date Visits V isits Requested Authorized [id number] Closed Specialty 06/01/2021 07/30/2021 1 1 Service Requested Encounter Details Date Type Department Care Team Description 06/04/2021 Hospital Encounter MRI at [facility] Ralf Sabillon Malignant neoplasm [facility] MD Rohan of prostate [address] [place], [place] C[place] [address] UROLOGY [phone] [place], [place] [address] Social History Tobacco Use Types [...] place to sleep or slept in a residential (including now)? Sex Assigned at Date Recorded [...] Name Priority Date/Time Associated Diagnosis Comme nts MRI PELVIS WWO Routine 06/04/2021 5:08 PM Malignant neoplasm R esults for this (PROSTATE) EDT of prostate procedure are i n the results section. documented in this encounter Results MRI Pelvis wwo (Prostate) [...] S1, Rahman G1, Rayn K1, Kong MJ1, Wood BJ1, Hernandez PA1, Choyke PL1, Turksaba B1. ??A Grading System for the Assessment of Ris k of Extraprostatic Extension of Prostate Cancer at Multiparametric MRI. Radiology. 2019 Nov;290(3):709-719. doi: 10.1148/radiol.2916428069. Epub 2018Oct 13. Thank you for letting us participate in the care of this patient. ??If you are a health care provider and have any questi ons regarding this report, please contact the number below. ??For patients who have questions please contact the health plant care worker that requested your imaging first. ? Narrative 06/05/2021 9:49 AM EDT EXAMINATION: MRI PELVIS WWO (PROSTATE) CLINICAL HISTORY: Low risk prostate canc er on , rising PSA REASON FOR PROSTATE EXAM: HAS PATIENT HAD PREVIOUS BIOPSY?:Yes,2018 MOST RECENT PSA LEVEL:10 ALINA SCORE:6 TECHNIQUE: Multiparametric MRI of the pr [...] None. Procedure Note Bobby Chew MD - 06/05/2021For matting of this note might be different from the original. EXAMINATION: MRI PELVIS WWO (PROSTATE) CLINICAL HISTORY: Low risk prostate canc er on , rising PSA REASON FOR PROSTATE EXAM: HAS PATIENT HAD PREVIOUS BIOPSY?:Yes,2018 MOST RECENT PSA LEVEL:10 ALINA SCORE:6 TECHNIQUE: Multiparametric MRI of the pr [...] K1, Dilan MJ1, Wood BJ1, Hernandez PA1, Edwin PL1, Danielle B1. A Grading System for the Assessment of Ris k of Extraprostatic Extension of Prostate Cancer at Multiparametric MRI. Radiology. 2019 Nov;290(3):709-714. doi: 10.1148/radiol.7843438752. Epub 2018Oct 13. Thank you for letting us participate in the care of this patient. If you are a health care provider and have any questi ons regarding this report, please contact the number below. For patients w ho have questions please contact the health plant care worker that requested your imaging first. Ralf Sabillon MD IMG MRI ORDERABLES documented in this encounter Visit Diagnoses Diagnosis Malignant neoplasm of prostate documented in this encounter Administered Medications Inactive Administered Medications - up to 3 most recent administrations Medication Order MAR Action Action Date Dose Rate Site gadoterate meglumine (Dotarem) Given 06/04/2021 5:04 PM EDT 19 m Ls (0.5 mMol/mL) injection solution 0-100 mL 0-100 mL, Intravenous, ONCE PRN, 1 dose, Starting on Fri06/04/21 at 1618, Until Fri06/04/21 at 1704, Per Protocol, Radiology Contrast, Routine documented in this encounter Care Teams Station Repairer Relationship Specialty Start Date End Date Darin Lozano MD PCP - General Family Medicine 03/29/[address] [place] [phone] documented as of this encounter
--- OUTSIDE RECORDS SUMMARY | 2022-06-21 14:03 | XMS_ITS | Encounter Summary ---
:1970 Author Organization [facility] Address [place] [id number] Care Team Providers Name Role Phone Winston Li MD Primary Care Provider Reason for Referral Diagnostic Test (Routine) - Closed Specialty Diagnoses / Procedures Referred By Contact Refer red To Contact Radiology Diagnoses Malignant neoplasm of prostate Jerel Shafer MD [facility] Rad Mri Procedures MRI Pelvis WWO(Prostate) MRI Pelvis WO(Prostate) [facility] [place] [address] [place] [address] Referral ID Status Reason Start Date Expiration Date Visits V isits Requested Authorized [id number] Closed Specialty 03/16/2019 05/14/2019 1 1 Service Requested Reason for Visit Diagnostic Test (Routine) - Closed Specialty Diagnoses / Procedures Referred By Contact Refer red To Contact Radiology Diagnoses Malignant neoplasm of prostate Jerel Shafer MD [facility] Rad Mri Procedures MRI Pelvis WWO(Prostate) MRI Pelvis WO(Prostate) [facility] [place] [address] [place] [address] Referral ID Status Reason Start Date Expiration Date Visits V isits Requested Authorized [id number] Closed Specialty 03/16/2019 05/14/2019 1 1 Service Requested Encounter Details Date Type Department Care Team Description 03/19/2019 Hospital En[place] [facility] [place] Malignant ne[place] [facility] Jerel Norton MD of [address] [place] [address] UROLOGY DEPT [phone] [place] [address] Social History Tobacco Use Types Packs/Day Years [...] place to sleep or slept in a group home (including now)? Sex Assigned at Date [...] Diagnosis Comme nts MRI PELVIS WWO Routine 03/19/2019 2:04 PM Malignant neoplasm R esults for this (PROSTATE) EDT of prostate procedure are i n the results section. documented in this encounter Results MRI Pelvis WWO(Prostate) (03/19/2019 2:04 PM EDT) Anatomical Region Laterality Modality Pelvis Magnetic Resonance Specimen (Source) Anatomical Location Collection Method / Collectio n Time Received Time / Laterality Volume Impressions 03/19/2019 3:16 PM EDT No focal lesions: PI-RADS 1. Clinically significant disease is highly unlikely to be present. PI-RADS v2.1 Assessment Categories PI-RADS 1 -- [...] cancer is highly likely to be present) Thank you for letting us participate in the care of this patient. For questions regarding this report, please contact e number below. ? Narrative 03/19/2019 3:16 PM EDT EXAMINATION: MRI PELVIS WWO(PROSTATE) CLINICAL HISTORY: Adenocarcinoma of pros garrido PSA level: 7.6 Date of sextant biopsy:November 23, 2018 Gl macarena score: ??6 TECHNIQUE: Multiparametric MRI of the pr ostate prior to and following IV administration of 20 cc of Dotarem contr ast. ?? QUALITY: Compromized by motion artifact on T2 and diffusion sequences. COMPARISON: None FINDINGS: Prostate dimensions: 4.4 x 4.1 x 2.6cm. Estimated prostate volume: 24.4cc (X x Y x Z x 0.52) PSA density: (PSA/prostate volume >0.15 susp, 0.25 highly susp) Peripheral zone: No focal lesions. T2: diffuse mild hypointensity with baldo stinct margins. PI-RADs: 2. DWI: ??No abnormality on ADC and high b- value DWI. PI-RADs: 1. DCE-MRI: (-) ??focal enhancement corresp onding to a lesion demonstrating features of BPH on T2WI. ? Combined PI-RADs: 1. Transition zone: No focal lesions T2: Homogeneous intermediate signal inte nsity (normal) . PI-RADs: 1. DWI: ??No abnormality on ADC and high b- value DWI. PI-RADs: 1. DCE-MRI: ??(-) diffuse enhancement not c orresponding to a focal finding on T2 and/or DWI.. ? Combined PI-RADs: 1. Extraprostatic disease: Seminal vesicle involvement:No Lymphadenopathy:No Sphincter involvement:No Bladder involvement:No Osseous metastases: No . Extraprostatic extension: No Other findings: None. Procedure Note Bobby Chew MD - 03/19/2019For matting of this note might be different from the original. EXAMINATION: MRI PELVIS WWO(PROSTATE) CLINICAL HISTORY: Adenocarcinoma of pros garrido PSA level: 7.6 Date of sextant biopsy:November 23, 2018 Gl macarena score: 6 TECHNIQUE: Multiparametric MRI of the pr ostate prior to and following IV administration of 20 cc of Dotarem contr ast. QUALITY: Compromized by motion artifact on T2 and diffusion sequences. COMPARISON: None FINDINGS: Prostate dimensions: 4.4 x 4.1 x 2.6cm. Estimated prostate volume: 24.4cc (X x Y x Z x 0.52) PSA density: (PSA/prostate volume >0.15 susp, 0.25 highly susp) Peripheral zone: No focal lesions. T2: diffuse mild hypointensity with baldo stinct margins. PI-RADs: 2. DWI: No abnormality on ADC and high b-va lue DWI. PI-RADs: 1. DCE-MRI: (-) focal enhancement correspon ding to a lesion demonstrating features of BPH on T2WI. Combined PI-RADs: 1. Transition zone: No focal lesions T2: Homogeneous intermediate signal inte nsity (normal) . PI-RADs: 1. DWI: No abnormality on ADC and high b-va lue DWI. PI-RADs: 1. DCE-MRI: (-) diffuse enhancement not cor responding to a focal finding on T2 and/or DWI.. Combined PI-RADs: 1. Extraprostatic disease: Seminal vesicle involvement:No Lymphadenopathy:No Sphincter involvement:No Bladder involvement:No Osseous metastases: No . Extraprostatic extension: No Other findings: None. IMPRESSION No focal lesions: PI-RADS 1. Clinically significant disease is highly unlikely to be present. PI-RADS v2.1 Assessment Categories PI-RADS 1 -- [...] cancer is highly likely to be present) Thank you for letting us participate in the care of this patient. For questions regarding this report, please contact e number below. Jerel Shafer MD IMG MRI ORDERABLES documented in this encounter Visit Diagnoses Diagnosis Malignant neoplasm of prostate documented in this encounter Administered Medications Inactive Administered Medications - up to 3 most recent administrations Medication Order MAR Action Action Date Dose Rate Site gadoterate meglumine (DOTAREM) 0.5 Given 03/19/2019 1:54 PM EDT 20 mLs mmol/mL (376.9 mg/mL) injection 0-100 mL 0-100 mL, Intravenous, ONCE PRN, 1 dose, Starting on Fri03/19/19 at 1404, Until Fri03/19/19 at 1354, Per Protocol, Radiology Contrast, Routine documented in this encounter Care Teams Epic Interface Analyst Relationship Specialty Start Date End Date Winston Li MD PCP - General 08/14/10 03/28/19 documented as of this encounter
--- OUTSIDE RECORDS SUMMARY | 2022-06-21 14:03 | XMS_ITS | Clinical Summary ---
:1970 Author Organization [facility] [place] [address] Care Team Providers Name Role Phone Darin Lozano MD Primary Care Provider Allergies No known active allergies Medications Medication Sig Dispensed Refills Start Date End Date Status albuterol 90 Inject as 0 07/13/2018 Active mcg/actuation HFA directed. Aerosol Inhaler omeprazole (PriLOSEC) Take 20 mg by 0 Active 20 mg Capsule, Delayed mouth daily as Release(E.C.) needed. tadalafiL (CIALIS) 5 Take 5 mg by mouth 0 Active mg Tablet daily. Active Problems Problem Noted Date Malignant neoplasm of prostate 04/20/2021 Cancer Staging: Clinical: Stage IIA (cT1 c, cN0, cM0, PSA: 10.6, Grade Group: 1) - Signed by Enzo Bennett MD on 04/20/2021 Pathologic: Stage IIIB (pT3a, pN0, cM0, PSA: 15, Grade Group: 2) - Signed by Enzo Bennett MD on 06/19/2022 Encounters Date Type Specialty Care Team Description 06/21/2022 Office Visit Radiation Oncology Enzo Bennett Mali gnant neoplasm of MD prostate from Last 3 Months Social History Tobacco Use Types Packs/Day Years Used Date Never Smoker Smokeless Tobacco: Never Used Alcohol Use Standard Drinks/Week Comments Yes 2 (1 standard drink = 0.6 oz pure alcoho l) selvin occasionally Alcohol Habits Answer Date Recorded How [...] place to sleep or slept in a fci (including now)? Sex Assigned at Date Recorded Not on file Last Filed Vital Signs Vital Sign Reading Time Taken Comments Blood Pressure 128/62 06/21/2022 10:00 AM EDT Pulse 74 06/21/2022 10:00 AM EDT Temperature 36.9 ??C (98.4 ??F) 06/21/2022 10:00 AM EDT Respiratory Rate 18 06/21/2022 10:00 AM EDT Oxygen Saturation 100% 06/21/2022 10:00 AM EDT Inhaled Oxygen Concentration - - Weight 102.2 kg (225 lb 3.2 oz) 06/21/2022 10:00 AM EDT Height 184 cm (6' 0.44) 06/11/2021 8:23 AM EDT Body Mass Index 30.17 06/11/2021 8:23 AM EDT Plan of Treatment Health Maintenance Due Date Last Done Comments Covid-19 Vaccine (#1) 1973 HIV screen 1986 Hepatitis C Screening 1986 Lipid Screening 1986 Tdap adult 1987 Tetanus vaccine 1987 Diabetes Screening (HgbA1C or Glucose) 2008 Colonoscopy 2013 Zoster vaccine (1 of 2) 2018 Influenza (Flu) vaccine (1 of 1 - Influenza standard 05/23/2022 series) Procedures Procedure Name Priority Date/Time Associated Diagnosis Comme nts LAB SCAN 04/30/2022 12:00 AM Results for this EDT procedure are i n the results section . from Last 3 Months Results SCAN DOC: LAB (04/30/2022 12:00 AM EDT) Narrative This result has an attachment that is no t available. Unknown MEDIA MGR SCAN EXT ORDR/RSLT from Last 3 Months Insurance Payer Benefit Plan / Subscriber ID Effective Dates Phone Addre ss Type Group [facility] [id number] 2020-Present [address] [facility] [place] [address] Care Teams Skid Man Relationship Specialty Start Date End Date Darin Lozano MD PCP - General Family Medicine 03/29/19 [address] [place] [address]
--- OUTSIDE RECORDS SUMMARY | 2022-06-21 14:03 | XMS_ITS | Encounter Summary ---
:1970 Author Organization [facility] [place] [address] Care Team Providers Name Role Phone Winston Li MD Primary Care Provider Reason for Referral Diagnostic Test (Routine) - Closed Specialty Diagnoses / Procedures Referred By Contact Refer red To Contact Radiology Diagnoses Malignant neoplasm of prostate Jerel Shafer MD [facility] Rad Mri Procedures MRI Pelvis WWO(Prostate) MRI Pelvis WO(Prostate) [facility] [place] [address] [place] [address] Referral ID Status Reason Start Date Expiration Date Visits V isits Requested Authorized [id number] Closed Specialty 03/16/2019 05/14/2019 1 1 Service Requested Encounter Details Date Type Department Care Team Description 02/19/2019 [place] Only [place] [facility] [place]ue Abebe, Malignant neoplasm of [facility] PRESS [place] [address] Social History Tobacco Use Types Packs/Day [...] on filedocumented as of this encounter Results MRI Pelvis WWO(Prostate) (03/19/2019 [...] prostate documented in this encounter Care Teams Bottoming Room Inspector Relationship Specialty Start Date End Date Winston Li MD PCP - General 08/14/10 03/28/19 documented as of this encounter
--- OUTSIDE RECORDS SUMMARY | 2022-06-21 14:04 | XMS_ITS | Encounter Summary ---
:1970 Author Organization [facility] [place] [address] Care Team Providers Name Role Phone Winston Li MD Primary Care Provider Encounter Details Date Type Department Care Team Description 11/23/2018 Hospital Encounter Laboratory [facility] [place] [address] Social History Tobacco Use Types Packs/Day [...] place to sleep or slept in a intermediate (including now)? Sex Assigned at Date Recorded Not on file documented as of this encounter Medications at Time of Discharge Medication Sig Dispensed Refills Start Date End Date albuterol 90 mcg/actuation Inject as directed. 0 07/13/2018 HFA Aerosol Inhaler documented as of this encounter Plan of Treatment Not on filedocumented as of this encounter Procedures Procedure Name Priority Date/Time Associated Diagnosis Comme nts SURGICAL PATHOLOGY Routine 11/23/2018 1:27 PM Res ults for this REPORT EST procedure are i n the results section. documented in this encounter Results Surgical Pathology Report (11/23/2018 1:27 PM EST) Component Value Ref Test Analysis Performed At [facility] Range Method Time Signature Surgical [id number] ? Location: Report The signing pathologist has (i) examined the relevant preparation(s) for the [facility] specimen(s) and (ii) rendered or confirmed the diagnosis(es) . HOSPITAL [facility] . ? Addendum ADDENDUM DISCUSSION SPECIAL TEST PERFORMED: Test: ??[facility] Case: ??[id number] Performing Lab: ??[facility] Performing Lab Case: ??[id number] Reported by Luca Larios Date reported: ??12/24/2018 For the full text of the Myr iad report(s), please refer to the scanned doc tab in the electronic health record (eDH). Electronically signed by: ??MD Franklyn, Jose Carlos Rico Verified: ??12/28/2018 ?Pathologist Performed at: ??-[facility] [place], [place], [place] ?Surgic al Pathology DIAGNOSIS Prostate needle core biopsies: A - Right base lateral: - Benign prostatic tissue. B - Right base: - Benign prostatic tissue. C - Right mid lateral: - Benign prostatic tissue. D - Right mid: - Benign prostatic tissue. E - Right apex lateral: - Benign prostatic tissue. F - Right apex: - Prostatic adenocarcinoma, ?? Grade Group 1 ??(Glenham sco re 3+3=6), ?involving 5% of a single core. (see Discussion.) G - Left base lateral: - Prostatic adenocarcinoma, Grade Group 1 (Earnestine score 3+ 3=6), ?involving 12% of a single core. - Perineural invasion is present. H - Left base: - Benign prostatic tissue. I - Left mid lateral: - Prostatic adenocarcinoma, Grade Group 1 (Earnestine score 3+ 3=6), ?discontinuously involving 25% of a single core. ?(see Discussion.) J - Left mid: . DIAGNOSIS - Benign prostatic tissue. K - Left apex lateral: - Multiple atypical small acinar proliferations, suspicio us for carcinoma. ?? (see Discussion.) L - Left apex - ??Prostatic adenocarcinoma, Grade Group 1 (Glenham score 3+3=6), ?involving 70% of a single core. Electronically signed by: ??MD Franklyn, Jose Carlos Rico Verified: ??11/26/2018 ?Pathologist Performed at: ??-[facility] Dept. of Pathology, [place], [place] DISCUSSION F) ??An immunostain cocktail for WB40UL6 2, p63, and P504S is supportive of the diagnosis. I) ??An immunostain cocktail for WD31FU2 2, p63, and P504S is supportive of the diagnosis. K) ??An immunostain cocktail for IC53QX2 2, p63, and P504S is supportive of the diagnosis. There is partial basal cell loss in several smal l foci. ADDITIONAL STUDIES Whole slide scan: customer care representative slide(s) CLINICAL INFORMATION Specimen Submitted: A - Right base lateral B - Right base C - Right mid lateral D - Right mid E - Right apex lateral F - Right apex G - Left base lateral H - Left base I - Left mid lateral J - Left mid K - Left apex lateral L - Left apex Clinical History and Diagnosis: None provided. Referring Identifier: ??[id number] SPECIMEN PROCESSING A - Labeled/Fixative: A right base lateral, formalin. Quantity/Size: Single, 1.3 x 0.1 cm. Tissue Description: Savage-white needle core biopsy. Sections/Processing: Entirely submitted in 1 cassette labeled A1. B - Labeled/Fixative: B right base, formalin. Quantity/Size: Single, 1.1 x 0.1 cm. Tissue Description: Savage-white needle core biopsy. Sections/Processing: Entirely submitted in 1 cassette labeled B1. C - Labeled/Fixative: C right mid lateral, formalin. Quantity/Size: Single, 1.7 x 0.1 cm. . SPECIMEN PROCESSING Tissue Description: Savage-white needle core biopsy. Sections/Processing: Entirely submitted in 1 cassette labeled C1. D - Labeled/Fixative: D right mid, formalin. Quantity/Size: Single, 1.5 x 0.1 cm. Tissue Description: Savage-white needle core biopsy. Sections/Processing: Entirely submitted in 1 cassette labeled D1. E - Labeled/Fixative: E right apex lateral, formalin. Quantity/Size: Single, 1.6 x 0.1 cm. Tissue Description: Savage-white needle core biopsy. Sections/Processing: Entirely submitted in 1 cassette labeled E1. F - Labeled/Fixative: F right apex, formalin. Quantity/Size: Single, 1.9 x 0.1 cm. Tissue Description: Savage-white needle core biopsy. Sections/Processing: Entirely submitted in 1 cassette labeled F1. G - Labeled/Fixative: G left base lateral, formalin. Quantity/Size: Single, 1.7 x 0.1 cm. Tissue Description: Savage-white needle core biopsy. Sections/Processing: Entirely submitted in 1 cassette labeled G1. H - Labeled/Fixative: H left base, formalin. Quantity/Size: Single, 1.4 x 0.1 cm. Tissue Description: Savage-white needle core biopsy. Sections/Processing: Entirely submitted in 1 cassette labeled H1. I - Labeled/Fixative: I left mid lateral, formalin. Quantity/Size: Single, 1.9 x 0.1 cm. Tissue Description: Savage-white needle core biopsy. Sections/Processing: Entirely submitted in 1 cassette labeled I1. J - Labeled/Fixative: J left mid, formalin. Quantity/Size: Single, 1.3 x 0.1 cm. Tissue Description: Savage-white needle core biopsy. Sections/Processing: Entirely submitted in 1 cassette labeled J1. K - Labeled/Fixative: K left apex lateral, formalin. Quantity/Size: Single, 1.9 x 0.1 cm. Tissue Description: Savage-white needle core biopsy. Sections/Processing: Entirely submitted in 1 cassette labeled K1. L - Labeled/Fixative: L left apex, formalin. Quantity/Size: Single, 1.8 x 0.1 cm. Tissue Description: Savage-white needle core biopsy. Sections/Processing: Entirely submitted in 1 cassette labeled L1. ??apb Specimen (Source) Anatomical Collection Method Collection Time Re ceived Time Location / / Volume Laterality 11/23/2018 1:27 PM EST Resulting Agency Comment Spec In Lab / [facility] Ortega Barrios MD PATHOLOGY/CYTOLOGY ORDERABLE S Performing Organization Address City/State/[place] [address] documented in this encounter Visit Diagnoses Not on filedocumented in this encounter Care Teams Computer Scientist Relationship Specialty Start Date End Date Winston Li MD PCP - General 08/14/10 03/28/19 documented as of this encounter
--- OUTSIDE RECORDS SUMMARY | 2022-06-21 14:09 | XMS_ITS | Continuity of Care Document ---
:1970 Author Organization [facility] Care Team Providers Name Role Phone [facility] Unavailable Unavailable Social History Combined list of available smoking, tobacco, and other social history from [facility] facilities. Social History Type Response Date Comment Source This section is an empty social history section. [facility]
[2022-06-22 13:30] LABS: PSA, Ultrasensitive 0.09 ng/mL (<= 3.5)
== END 2022-06-21 14:01 | disposition home or self-care (01) ==
LOC: LBO 14:01
PROVIDERS: Visit Provider Radiology Radiation Oncology
DX: C61 Malignant neoplasm of prostate (principal)
CPT/HCPCS: 36415; 84153